=== PATIENT | female | born 2000 | race Caucasian/White ===

== ENCOUNTER 2019-09-16 20:44 | Emergency (ER) | payer OTHER, SELFPAY ==
[2019-09-16 20:51] VITALS: BP 140/75; PULSE 80; RESP 12; TEMP 36.3; O2SAT 98; BMI 34.7
--- NOTE | 2019-09-16 20:54 | ED_ITS ---
HPI - General Adult General Chief complaint: Abdominal Pain Stated complaint: pain around umbilical area Time Seen by Provider: 09/16/19 20:47 Source: patient Mode of arrival: Ambulatory Limitations: no limitations History of Present Illness HPI narrative: 18-year-old female here for evaluation of periumbilical and right lower quadrant abdominal pain. She states she has felt bloated for the past several days/week however pain started around her umbilicus yesterday and is not located in the right lower quadrant. No urinary symptoms. No vaginal bleeding. No change in bowel habits. Some nausea but no vomiting. Appetite has been coming and going. No fevers. No prior abdominal surgeries. Related Data Allergies Allergy/AdvReac Type Severity Reaction Status Date / Time No Known Drug Allergies Allergy Verified 09/16/19 21:24 Review of Systems Constitutional Constitutional: Denies fatigue and Denies fever(s) Cardiovascular Cardiovascular: Denies chest pain and Denies dyspnea Respiratory Respiratory: Denies dyspnea Gastrointestinal Gastrointestinal: Reports abdominal pain, Denies change in stool character, Reports nausea and Denies vomiting Genitourinary Genitourinary: Denies dysuria and Denies vaginal discharge Musculoskeletal Musculoskeletal: Denies myalgias and Denies arthralgias Integumentary/Breasts Skin/Breast: Denies rash Neurologic Neurologic: Denies behavioral changes Psychiatric Psychiatric: Denies behavioral changes Endocrine Endocrine: Denies fatigue Hematologic/Lymphatic Hematologic/Lymphatic: Denies easy bleeding and Denies easy bruising Patient History Medical History Patient denies medical problems (Acute) Social History lives independently: Yes Smoking Status: Current every day smoker Exam Initial Vital Signs Initial Vital Signs: Vital Signs Temperature 97.4 F L 09/16/19 20:51 Pulse Rate 80 09/16/19 20:51 Respiratory Rate 12 09/16/19 20:51 Blood Pressure 140/75 09/16/19 20:51 Pulse Oximetry 98 09/16/19 20:51 Const General: cooperative and comfortable HENMT Head: normal to inspection and normocephalic Resp Effort & Inspection: normal respiratory effort Auscultation: clear to auscultation bilaterally Cardio Rate: regular rate Rhythm: regular rhythm GI Inspection: non-distended Palpation: soft and tender (Right lower quadrant with some guarding no rebound) Back/Spine/Pelvis Back: No CVA tenderness Skin Lesions: no lesions Rashes: no rashes Neuro General: alert and awake Cognition: normal cognition Speech: speech normal Extrem General: normal to inspection and capillary refill normal Psych Appearance: grossly normal and well kempt Course Orders Ordered: ED Orders 09/16/19 20:54 CT abdomen pelvis w con Stat 09/16/19 21:00 Complete Blood Count MAN DIFF Stat Comprehensive Metabolic Panel Stat Lipase Stat 09/16/19 21:10 Urine Microscopic Stat Discontinued Medications Sodium Chloride (Normal Saline 0.9%) 1,000 mls @ 1,000 mls/hr IV BOLUS ONE Stop: 09/16/19 21:52 Vital Signs Vital signs: Vital Signs - 8 hr 09/16/19 20:51 Temperature 97.4 F L Pulse Rate 80 Respiratory Rate 12 Blood Pressure 140/75 Pulse Oximetry 98 Medical Decision Making Lab Data Lab results reviewed: Yes I reviewed the patient's lab results. Result diagrams: 09/16/19 21:00 09/16/19 21:00 Labs: Lab Results 09/16/19 09/16/19 09/16/19 Range/Units 21:00 21:00 21:00 WBC 9.2 (4.5-11.0) X10^3/uL RBC 4.32 (4.0-5.2) X10^6/uL Hgb 13.7 (12.0-16.0) g/dL Hct 38.7 (36-46) % MCV 89.8 (80-100) fL MCH 31.7 (26-34) PG MCHC 35.3 (30-36) % RDW 13.1 (11.6-14.8) % Plt Count 311 (150-400) X10^3/uL Total Counted 100 Seg Neutrophils % 50.0 (37-67) % Lymphocytes % (Manual) 42.0 (25-45) % Monocytes % (Manual) 5.0 (2-11) % Eosinophils % (Manual) 2.0 (2-4) % Basophils % (Manual) 1.0 (0-1) % Neutrophils # (Manual) 4600 (4854-8521) /uL RBC Morphology Normal morphology Sodium 138 (137-145) mmol/L Potassium 4.0 (3.4-5.1) mmol/L Chloride 107 (98-107) mmol/L Carbon Dioxide 23 (22-32) mmol/L BUN 15 (7-17) mg/dL Creatinine 0.70 (0.52-1.04) mg/dL Estimated GFR > 60.0 (>60) mL/min BUN/Creatinine Ratio 21.4 (6-22) Glucose 107 H (70-100) mg/dL Calcium 9.6 (8.4-10.2) mg/dL Total Bilirubin 0.5 (0.2-1.3) mg/dL AST 24 (14-36) IU/L ALT 22 (<35) IU/L Alkaline Phosphatase 81 (38-126) U/L Total Protein 7.1 (6.3-8.2) g/dL Albumin 4.4 (3.5-5.0) g/dL Globulin 2.7 (1.7-4.1) g/dL Albumin/Globulin Ratio 1.6 (1.0-2.8) Lipase 188 (23-300) U/L Urine RBC (0-5/HPF) Urine WBC (0-5/HPF) Ur Squamous Epith Cells (0-5/HPF) Amorphous Sediment Urine Bacteria (None) Ur Culture Indicated? 09/16/19 Range/Units 21:10 WBC (4.5-11.0) X10^3/uL RBC (4.0-5.2) X10^6/uL Hgb (12.0-16.0) g/dL Hct (36-46) % MCV (80-100) fL MCH (26-34) PG MCHC (30-36) % RDW (11.6-14.8) % Plt Count (150-400) X10^3/uL Total Counted Seg Neutrophils % (37-67) % Lymphocytes % (Manual) (25-45) % Monocytes % (Manual) (2-11) % Eosinophils % (Manual) (2-4) % Basophils % (Manual) (0-1) % Neutrophils # (Manual) (1506-9146) /uL RBC Morphology Sodium (137-145) mmol/L Potassium (3.4-5.1) mmol/L Chloride (98-107) mmol/L Carbon Dioxide (22-32) mmol/L BUN (7-17) mg/dL Creatinine (0.52-1.04) mg/dL Estimated GFR (>60) mL/min BUN/Creatinine Ratio (6-22) Glucose (70-100) mg/dL Calcium (8.4-10.2) mg/dL Total Bilirubin (0.2-1.3) mg/dL AST (14-36) IU/L ALT (<35) IU/L Alkaline Phosphatase (38-126) U/L Total Protein (6.3-8.2) g/dL Albumin (3.5-5.0) g/dL Globulin (1.7-4.1) g/dL Albumin/Globulin Ratio (1.0-2.8) Lipase (23-300) U/L Urine RBC 0-1/hpf (0-5/HPF) Urine WBC 0-1/hpf (0-5/HPF) Ur Squamous Epith Cells 1-5 /hpf (0-5/HPF) Amorphous Sediment 1+ Urine Bacteria Occasional (0-1) (None) Ur Culture Indicated? Cult not indicated Point of Care Testing Test Results Negative Urine Dip Bedside Urine Glucose Negative Bedside Urine Bilirubin - Negative Bedside Urine Ketone - Negative Urine Specific [place] 1.025 Bedside Urine Occult Blood +/- Bedside Urine pH 6.0 Bedside Urine Protein +/- 15 Bedside Urine Urobilinogen - Negative Bedside Urine Nitrite - Negative Bedside Urine Leukocytes - Negative Esterase Point of care testing: Point of Care Testing Test Results Negative Urine Dip Bedside Urine Glucose Negative Bedside Urine Bilirubin - Negative Bedside Urine Ketone - Negative Urine Specific [place] 1.025 Bedside Urine Occult Blood +/- Bedside Urine pH 6.0 Bedside Urine Protein +/- 15 Bedside Urine Urobilinogen - Negative Bedside Urine Nitrite - Negative Bedside Urine Leukocytes - Negative Esterase Imaging Data CT scan - abdomen/pelvis: Radiologist's Impression: [address] [address] [address] Scan Report Signed Patient: Delaney Friend#: [id number] : 2000Acct:[id number] Age/Sex: 18 FDate of Service: 09/16/19 Loc: ED Accession Number: [id number] Procedure: CT abdomen pelvis w con Ordering Provider: Rob Rivera D.O. PROCEDURE: CT ABDOMEN PELVIS W CON INDICATIONS: RLQ pain eval for appy TECHNIQUE: After the administration of intravenous contrast, 5 mm thick sections acquired from the diaphragm to the symphysis. 5 mm coronal and sagittal reformats were acquired. For radiation dose reduction, the following was used: automated exposure control, adjustment of mA and/or kV according to patient size. COMPARISON: None. FINDINGS: Image quality: Excellent. ABDOMEN: Lung bases: Lung bases are clear. Heart size is normal. Solid organs: Liver is normal in size and enhancement. Gallbladder is contracted. Biliary system is non dilated. Pancreas enhances normally. Spleen is normal in size and enhancement. No adrenal nodules. Kidneys demonstrate normal size and enhancement, without hydronephrosis. Peritoneum and bowel: Normal appendix is Bowel loops demonstrate normal wall thickness and caliber. A few colonic diverticula are present. No CT findings to suggest acute diverticulitis. No free fluid or air. Nodes and vessels: No retroperitoneal or mesenteric adenopathy by size criteria. Aorta and inferior vena cava are normal in size. Miscellaneous: No ventral hernias. PELVIS: Genitourinary: Bladder wall thickness is normal. There is a 1.4 cm enhancing nodule in the anterior uterus, compatible with a fibroid. Ovaries are unremarkable. No free pelvic fluid. Miscellaneous: No inguinal hernias or adenopathy. Bones: No suspicious bony lesions. No vertebral body compression fractures. IMPRESSION: 1. Normal appendix. 2. Equivocal bladder wall thickening which may be secondary to inadequate d istention. 3. Mild diverticulosis. No diverticulitis. 4. A 1.4 cm enhancing nodule in the anterior uterus, compatible with a uterine fibroid. Dictated by: Tomas Nelson M.D. on 09/16/2019 at 22:23 Approved by: Tomas Nelson M.D. on 09/16/2019 at 22:30 MDM Narrative Medical decision making narrative: Labs unremarkable, urine unremarkable, CT scan shows no signs of an acute surgical issue. Skin shows no signs of a rash. No indication for antibiotics. No indication for surgical consultation. I did discuss this with the patient. We did discuss the lack of a definitive diagnosis. We did discuss return precautions and follow-up instructions. We will hold on further workup for now. Patient expressed understanding and agreement with plan. Discharge Plan Departure Patient Disposition: Home Clinical Impression: Abdominal pain Qualifiers: Abdominal location: right lower quadrant Qualified Code(s): R10.31 - Right lower quadrant pain Instructions: DI for Abdominal Pain-Adult Activity Restrictions/Additional Instructions: You have no restrictions on your activities. No restrictions on your diet. Contact your primary provider for a follow-up. Return to the emergency department for any new or worsening symptoms
[2019-09-16 21:24] LABS: Hematocrit 38.7 % (36-46); Hemoglobin 13.7 g/dL (12.0-16.0); Mean Corpuscular HGB Conc 35.3 % (30-36); Mean Corpuscular Hemoglobin 31.7 PG (26-34); Mean Corpuscular Volume 89.8 fL (80-100); Platelet Count 311 X10^3/uL (150-400); Red Blood Cell Count 4.32 X10^6/uL (4.0-5.2); Red Cell Distribution Width 13.1 % (11.6-14.8); White Blood Cell Count 9.2 X10^3/uL (4.5-11.0)
[2019-09-16 21:28] LABS: Lipase 188 U/L (23-300)
[2019-09-16 21:30] LABS: Alanine Aminotransferase 22 IU/L (<35); Albumin 4.4 g/dL (3.5-5.0); Albumin Globulin Ratio 1.6 (1.0-2.8); Alkaline Phosphatase 81 U/L (38-126); Aspartate Aminotransferase 24 IU/L (14-36); BUN Creatinine Ratio 21.4 (6-22); Bilirubin Total 0.5 mg/dL (0.2-1.3); Blood Urea Nitrogen 15 mg/dL (7-17); Calcium 9.6 mg/dL (8.4-10.2); Carbon Dioxide 23 mmol/L (22-32); Chloride 107 mmol/L (98-107); Estimated Glomerular Filt Rate > 60.0 mL/min (>60); Globulin 2.7 g/dL (1.7-4.1); Glucose 107 mg/dL (70-100); HEMOLYSIS < 15 (0-50); Sodium 138 mmol/L (137-145); Total Protein 7.1 g/dL (6.3-8.2)
[2019-09-16] MEDS: SODIUM CHLORIDE 0.9% 1,000 ML 1000 ML IV (21:30)
[2019-09-16 21:33] LABS: Neutrophils Absolute Manual 4600 /uL (3000-5900); RBC Morphology Normal Morphology; Total Cells Counted 100
[2019-09-16 21:47] LABS: Amorphous Sediment Urine 1+; Bacteria Urine Occasional (0-1); Culture Indicated Urine Cult Not Indicated; RBC Urine 0-1/HPF (0-5/HPF); Squamous Epithelial Cell Urine 1-5 /HPF (0-5/HPF); WBC Urine 0-1/HPF (0-5/HPF)
[2019-09-16 22:00] VITALS: BP 140/89; PULSE 77; RESP 12; O2SAT 100
== END 2019-09-16 22:40 | disposition home or self-care (01) ==
PROVIDERS: Emergency Provider Emergency Medicine
DX: R10.31 Right lower quadrant pain (principal); R11.0 Nausea
CPT/HCPCS: 74177; 80053; 81003; 81015; 81025; 83690; 85025; 96360; 99284; Q9967

== ENCOUNTER 2019-12-12 13:13 | Emergency (ER) | payer OTHER, SELFPAY ==
[2019-12-12 13:15] VITALS: BP 121/79; PULSE 57; RESP 18; TEMP 36.4; O2SAT 98
--- NOTE | 2019-12-12 13:19 | ED_ITS ---
HPI - Abdominal Pain General Chief Complaint: Abdominal Pain Stated Complaint: belly button Time Seen by Provider: 12/12/19 13:18 Source: patient Mode of arrival: Ambulatory Limitations: no limitations History of Present Illness HPI narrative: This is a 19-year-old female comes to the emergency department complaint of 3-4 days of drainage from her umbilicus. Patient states she noticed a little bit of yellow crusty drainage. Show in clean it but it will reoccur. She started out initially with pain and then noted the drainage. She has not had fevers. She has had some redness inside the belly button itself but none on the outer abdomen. She has not had any nausea vomiting, no issues with bowel movements or urination. No back or flank pain. She has not had similar symptoms in the past. She denies any other medical issues. Related Data Previous Rx's Medication Instructions Recorded amoxicillin-pot clavulanate 1 tab PO Q12H #14 tab 12/12/19 [Augmentin] Allergies Allergy/AdvReac Type Severity Reaction Status Date / Time No Known Drug Allergies Allergy Verified 09/16/19 21:24 Review of Systems Review of Systems ROS Unobtainable: All systems reviewed & are unremarkable except as noted in HPI and below Patient History Medical History Patient denies medical problems (Acute) Social History lives independently: Yes Smoking Status: Current every day smoker Smoking Status: Current every day smoker Substance Use Type: does not use Exam Narrative Exam Narrative: GENERAL: Alert and oriented x three, well-nourished female in mild distress HEENT: Head normocephalic, atraumatic, EOMI, pupils reactive, face symmetric, moist mucous membranes NECK: Supple, full range of motion CARDIOVASCULAR: Regular rate and rhythm without murmurs, rubs or gallops. RESPIRATORY: Breath sounds equal bilaterally, no wheezes rales or rhonchi. ABDOMEN: Soft, nontender. Normoactive bowel sounds all 4 quadrants. No guarding or rebound, rigidity, no mass. Patient has some mild yellow crusting at the opening of the umbilicus. Am not able to express additional fluid but she does have some erythema within the umbilicus which is inverted. Patient does have some mild tenderness with palpation at the umbilicus but none in the abdomen. Culture was obtained and sent to the lab. : No CVA tenderness EXTREMITIES: Normal range of motion, no clubbing or edema. Neurovascularly intact NEUROLOGICAL: Cranial nerves II through XII grossly intact. Moving all extremities SKIN: Warm, dry, no petechiae, no rashes or lesions. Initial Vital Signs Initial Vital Signs: Vital Signs Temperature 97.5 F L 12/12/19 13:15 Pulse Rate 57 L 12/12/19 13:15 Respiratory Rate 18 12/12/19 13:15 Blood Pressure 121/79 12/12/19 13:15 Pulse Oximetry 98 12/12/19 13:15 Course Orders Ordered: ED Orders 12/12/19 13:42 US abdomen limited Stat Wound Culture and Gram Stain Stat Discontinued Medications Ibuprofen (Advil) 800 mg PO NOW ONE Stop: 12/12/19 14:25 Last Admin: 12/12/19 14:35 Dose: 800 mg Documented by: MARIA ALEJANDRA Vital Signs Vital signs: Vital Signs - 8 hr 12/12/19 13:15 12/12/19 15:27 Temperature 97.5 F L Pulse Rate 57 L 80 Respiratory Rate 18 16 Blood Pressure 121/79 Blood Pressure [Right Arm] 111/70 Pulse Oximetry 98 MDM - Abdominal Pain Imaging Data US - abdomen: Radiologist's Impression: [address] [address] Ultrasound Report Signed Patient: Delaney Friend#: [id number] : 2000Acct:[id number] Age/Sex: 19 / FDate of Service: 12/12/19 Loc: ED Accession Number: [id number] Procedure: US abdomen limited Ordering Provider: Charleen Raygoza D.O. PROCEDURE: US ABDOMEN LIMITED INDICATIONS: DRAINAGE FROM UMBILICUS, MILD CRUSTY YELLOW TECHNIQUE: Real-time focused scanning was performed of the abdomen, with image documentation. COMPARISON: [facility], CT, CT ABDOMEN PELVIS W CON, 09/16/2019, 21:38. FINDINGS: Targeted sonographic imaging was performed within the periumbilical region. No cystic or solid abnormalities are identified. No loculated or drainable fluid collections are present. No enlarged lymph nodes are identified. No definite periumbilical hernias are appreciated. IMPRESSION: No abscess or loculated fluid collection is present within the periumbilical region. Dictated by: Rubio Chambers M.D. on 12/12/2019 at 14:09 Approved by: Rubio Chambers M.D. on 12/12/2019 at 14:10 [facility] Narrative Medical decision making narrative: Patient likely has a localized infection her umbilicus but ultrasound was obtained to evaluate for any deeper fluid collections or other structural changes. Ultrasound does not show any acute findings. Patient does have gram positive cocci and variable rods on Gram stain but no wbc's are noted. Patient started on oral antibiotics with for wound care. Patient was encouraged to follow up if she is having very mild symptoms but any worsening symptoms to return to the ED. Discharge Plan Departure Patient Disposition: Home Clinical Impression: Pedroel cellulitis Discharge Date/Time: 12/12/19 15:28 Instructions: DI for Cellulitis -- Adult Activity Restrictions/Additional Instructions: You appear to have an infection of your umbilicius. If you do not have resolution of your symptoms in the next 1-2 weeks either follow up with general surgery or with your primary care physician for recheck. Take antibiotics until gone., start antibiotics today. You may take tylenol and/or ibuprofen as needed for pain. Wound Care: Keep wound(s) clean and dry. Wash twice daily with soap and water only. Do not use over the counter products (alcohol or peroxide)on the wounds unless instructed by a physician, you may put a small amount of topical triple antibiotic ointment twice daily into the umbilicus. If wound condition worsens (increased/expanding redness, developing fluid blisters, or worsening pain), either contact your doctor for an urgent re- assessment , or return to the Emergency Department. Return to the Emergency Department for any new or worsening symptoms. Return if fever greater than 100.4 Fahrenheit, increased swelling, increasing pain or worsening symptoms such as increased discharge or spreading redness, new abdominal or back pain, persistent vomiting, black or bloody stools or other new or concerning symptoms. Prescriptions: New amoxicillin-pot clavulanate [Augmentin] 875-125 mg tablet 1 tab PO Q12H Qty: 14 RF: 0 Referrals: Sana Agudelo ARNP [Primary Care Provider] - Stand Alone Forms: Work Release Note
--- NOTE | 2019-12-12 13:42 | DI.US.S_ITS ---
PROCEDURE: US ABDOMEN LIMITED INDICATIONS: DRAINAGE FROM UMBILICUS, MILD CRUSTY YELLOW TECHNIQUE: Real-time focused scanning was performed of the abdomen, with image documentation. COMPARISON: [facility], CT, CT ABDOMEN PELVIS W CON, 09/16/2019, 21:38. FINDINGS: Targeted sonographic imaging was performed within the periumbilical region. No cystic or solid abnormalities are identified. No loculated or drainable fluid collections are present. No enlarged lymph nodes are identified. No definite periumbilical hernias are appreciated. IMPRESSION: No abscess or loculated fluid collection is present within the periumbilical region. Dictated by: Rubio Chambers M.D. on 12/12/2019 at 14:09 Approved by: Rubio Chambers M.D. on 12/12/2019 at 14:10
[2019-12-12] MEDS: IBUPROFEN 400 MG TABLET 800 MG PO (14:35)
[2019-12-12 15:24] VITALS: BP 111/70; PULSE 80; RESP 18
[2019-12-12 15:27] VITALS: BP 111/70; PULSE 80; RESP 16
== END 2019-12-12 15:28 | disposition home or self-care (01) ==
PROVIDERS: Emergency Provider Emergency Medicine; PCP Nurse Practitioner Family
DX: L03.316 Cellulitis of umbilicus (principal)
CPT/HCPCS: 76705; 87070; 87077; 87186; 87205; 99283

== ENCOUNTER 2019-12-15 15:27 | Emergency (ER) | payer OTHER, SELFPAY ==
[2019-12-15 15:36] VITALS: BP 119/65; PULSE 66; RESP 16; TEMP 36; O2SAT 100
--- NOTE | 2019-12-15 15:36 | ED.GENADULT ---
HPI - General Adult General Chief complaint: Abdominal Pain Stated complaint: infected belly button Time Seen by Provider: 12/15/19 15:35 History of Present Illness HPI narrative: 19-year-old woman who was seen three days ago with complaints of umbilical drainage. Diagnosed with cellulitis, started on Augmentin and culture shows sphingomaonas, sensitive to almost everything. She states that she took her dressing off today and noticed some discharge with some blood on the dressing. Also some redness around the umbilicus (in the exact shape of the dressing) and her primary care physician suggested she follow-up at the emergency department. She complains that she has been lightheaded, dizzy, decreased appetite but still able to eat and drink if she ?forces herself?. Normal bowel bladder, she states that she has felt warm but has not actually measured a temperature, no cough, no myalgias. Related Data Previous Rx's Medication Instructions Recorded amoxicillin-pot clavulanate 1 tab PO Q12H #14 tab 12/12/19 [Augmentin] sulfamethoxazole-trimethoprim 1 tab PO BID #10 tab 12/15/19 [Bactrim DS] Allergies Allergy/AdvReac Type Severity Reaction Status Date / Time No Known Drug Allergies Allergy Verified 09/16/19 21:24 Review of Systems Review of Systems Narrative: All systems reviewed and are unremarkable except as noted in HPI and below Patient History Medical History Patient denies medical problems (Acute) Social History lives independently: Yes Smoking Status: Current every day smoker Smoking Status: Current every day smoker Substance Use Type: does not use Exam Narrative Exam Narrative: General: Healthy appearing, in no acute distress. Able to give a complete and coherent history. Well-nourished well-developed HEENT: Moist mucous membranes, normal sclera with reactive pupils, Neck: , supple Respiratory: Lungs are clear to auscultation, no wheezing no rales no rhonchi. Full and symmetrical air movement Cardiac: Regular rate and rhythm no murmurs no bruits Abdomen: Soft , good bowel tones, no flank pain. There is an erythematous square adrienne around the umbilicus consistent with the mild allergic reaction to the dressing that had been in place. The umbilicus itself is currently clean, dry, no discharge at all, no redness and no induration. She is quite tender to palpation around the umbilicus Skin: Warm and dry, no rashes Neurologic: Grossly neurologically intact with no obvious asymmetries or abnormalities Extremities: No trauma, well perfused Psych: Cooperative, appropriate insight and affect Bedside ultrasound: There is no deeper abscess, fluid collection or unusual bowel attachment that would suggest any type of fistula around the umbilicus Initial Vital Signs Initial Vital Signs: Vital Signs Temperature 96.8 F L 12/15/19 15:36 Pulse Rate 66 12/15/19 15:36 Respiratory Rate 16 12/15/19 15:36 Blood Pressure 119/65 12/15/19 15:36 Pulse Oximetry 100 12/15/19 15:36 Course Orders Ordered: ED Orders 12/15/19 16:00 Complete Blood Count AUTO DIFF Stat Comprehensive Metabolic Panel Stat Discontinued Medications Ibuprofen (Advil) 400 mg PO NOW ONE Stop: 12/15/19 15:58 Last Admin: 12/15/19 16:08 Dose: 400 mg Documented by: RUI Oxycodone/Acetaminophen (Percocet 5/325) 1 tab PO NOW ONE Stop: 12/15/19 15:58 Last Admin: 12/15/19 16:08 Dose: 1 tab Documented by: RUI Vital Signs Vital signs: Vital Signs - 8 hr 12/15/19 15:36 Temperature 96.8 F L Pulse Rate 66 Respiratory Rate 16 Blood Pressure 119/65 Pulse Oximetry 100 Medical Decision Making Medical Records Medical records reviewed: Yes I reviewed the patient's medical records. Lab Data Lab results reviewed: Yes I reviewed the patient's lab results. Result diagrams: 12/15/19 16:00 12/15/19 16:00 Labs: Lab Results 12/15/19 12/15/19 Range/Units 16:00 16:00 WBC 8.6 (4.5-11.0) X10^3/uL RBC 4.42 (4.0-5.2) X10^6/uL Hgb 14.2 (12.0-16.0) g/dL Hct 40.3 (36-46) % MCV 91.2 (80-100) fL MCH 32.2 (26-34) PG MCHC 35.3 (30-36) % RDW 13.0 (11.6-14.8) % Plt Count 287 (150-400) X10^3/uL Neut % (Auto) 57.0 (50-75) % Lymph % (Auto) 35.2 (25-40) % [place] % (Auto) 5.2 (3-14) % Eos % (Auto) 1.8 L (2-4) % Baso % (Auto) 0.8 (0-2) % Neut # (Auto) 4900 (7676-7629) /uL Lymph # (Auto) 3000 (4694-1778) /uL [place] # (Auto) 400 (0-900) /uL Eos # (Auto) 200 (0-450) /uL Baso # (Auto) 100 (0-100) /uL Sodium 139 (137-145) mmol/L Potassium 4.0 (3.4-5.1) mmol/L Chloride 106 (98-107) mmol/L Carbon Dioxide 26 (22-32) mmol/L BUN 17 (7-17) mg/dL Creatinine 0.71 (0.52-1.04) mg/dL Estimated GFR > 60.0 (>60) mL/min BUN/Creatinine Ratio 23.9 H (6-22) Glucose 90 (70-100) mg/dL Calcium 10.0 (8.4-10.2) mg/dL Total Bilirubin 0.6 (0.2-1.3) mg/dL AST 23 (14-36) IU/L ALT 20 (<35) IU/L Alkaline Phosphatase 76 (38-126) U/L Total Protein 7.6 (6.3-8.2) g/dL Albumin 4.6 (3.5-5.0) g/dL Globulin 3.0 (1.7-4.1) g/dL Albumin/Globulin Ratio 1.5 (1.0-2.8) Gram Stain Final 12/12/19-1433 White blood cells No WBC seen Gram Positive Cocci 4+ Gram Variable Rods 2+ Aerobic Culture for wounds Final 12/15/19-08 Skin Avni Light growth - Mixed skin avni Organism 1 Sphingomonas paucimobilis Growth HEAVY 1. Sphingomonas paucimobilis M.I.C. RX --------- --- * Amikacin S * Aztreonam R * Cefepime S * Ceftriaxone S * Ciprofloxacin S * Gentamicin S * Imipenem S * Levofloxacin S * Meropenem S * Tobramycin I * Trimethoprim/Sulfamethoxazole S * Piperacillin/Tazobactam S Anaerobic Culture Final 12/12/19-1433 [facility] Narrative Medical decision making narrative: Mild umbilical cellulitis improving with increased pain. No evidence of deeper abscess fluid collection or drainage this point. I am wondering if the pain is related to the superficial reaction to the bandage that she had on. Will expand antibiotic coverage to make sure fully covers the pathogen identified on culture initially. She is safe for home discharge Discharge Plan Departure Patient Disposition: Home Clinical Impression: Navel cellulitis Instructions: DI for Cellulitis -- Adult Activity Restrictions/Additional Instructions: Thank you for coming in today. Your infection around your belly button seems to be healing nicely. There is no evidence of a deeper abscess or worsening infection. I am going to add a 2nd antibiotic called Bactrim and would like you to complete 5 additional days in addition to completing the prescription for the amoxicillin clavulanate that your given 3 days ago. This prescription has been electronically sent to the pharmacy at the [facility]. Using 400 mg of ibuprofen (2 [id number] pills) and 1 Tylenol every 6 hours can be very helpful in controlling pain. It is okay to leave your belly button uncovered. You have some skin irritation from the dressing that you had placed previously. If you feel that you are getting worse please feel free to return to the emergency department and I am happy to re-evaluate Prescriptions: New sulfamethoxazole-trimethoprim [Bactrim DS] 800-160 mg tablet 1 tab PO BID Qty: 10 RF: 0 No Action amoxicillin-pot clavulanate [Augmentin] 875-125 mg tablet 1 tab PO Q12H Qty: 14 RF: 0 Referrals: Sana Agudelo ARNP [Primary Care Provider] -
[2019-12-15 16:06] LABS: Add Manual Diff / Slide Review NO; Basophils Absolute Auto 100 /uL (0-100); Basophils Percent Auto 0.8 % (0-2); Eosinophils Absolute Auto 200 /uL (0-450); Eosinophils Percent Auto 1.8 % (2-4); Hematocrit 40.3 % (36-46); Hemoglobin 14.2 g/dL (12.0-16.0); Lymphocytes Absolute Auto 3000 /uL (1100-4500); Lymphocytes Percent Auto 35.2 % (25-40); Mean Corpuscular HGB Conc 35.3 % (30-36); Mean Corpuscular Hemoglobin 32.2 PG (26-34); Mean Corpuscular Volume 91.2 fL (80-100); Monocytes Absolute Auto 400 /uL (0-900); Monocytes Percent Auto 5.2 % (3-14); Neutrophils Absolute Auto 4900 /uL (1500-7000); Platelet Count 287 X10^3/uL (150-400); Red Blood Cell Count 4.42 X10^6/uL (4.0-5.2); White Blood Cell Count 8.6 X10^3/uL (4.5-11.0)
[2019-12-15] MEDS: OXYCODONE/ACETAMINOPHEN 5/325 TABLET 1 TAB PO (16:08)
[2019-12-15] MEDS: IBUPROFEN 400 MG TABLET PO (16:08)
[2019-12-15 16:16] LABS: Alanine Aminotransferase 20 IU/L (<35); Albumin 4.6 g/dL (3.5-5.0); Albumin Globulin Ratio 1.5 (1.0-2.8); Alkaline Phosphatase 76 U/L (38-126); Aspartate Aminotransferase 23 IU/L (14-36); BUN Creatinine Ratio 23.9 (6-22); Bilirubin Total 0.6 mg/dL (0.2-1.3); Blood Urea Nitrogen 17 mg/dL (7-17); Carbon Dioxide 26 mmol/L (22-32); Chloride 106 mmol/L (98-107); Estimated Glomerular Filt Rate > 60.0 mL/min (>60); Glucose 90 mg/dL (70-100); HEMOLYSIS < 15 (0-50); Sodium 139 mmol/L (137-145); Total Protein 7.6 g/dL (6.3-8.2)
[2019-12-15 16:49] VITALS: BP 116/73; PULSE 72; RESP 12; TEMP 36.3; O2SAT 100
== END 2019-12-15 16:49 | disposition home or self-care (01) ==
PROVIDERS: Emergency Provider Emergency Medicine; PCP Nurse Practitioner Family
DX: L03.316 Cellulitis of umbilicus (principal)
CPT/HCPCS: 36415; 80053; 85025; 99283

== ENCOUNTER 2020-03-18 23:03 | Emergency (ER) | payer OTHER, SELFPAY ==
[2020-03-18 23:11] VITALS: BP 113/70; PULSE 60; RESP 15; TEMP 36.9; O2SAT 100; BMI 36.6
--- NOTE | 2020-03-18 23:25 | ED.GENADULT ---
HPI - General Adult General Chief complaint: Abdominal Pain Stated complaint: abd pain one week Time Seen by Provider: 03/18/20 23:15 Source: patient Mode of arrival: Ambulatory Limitations: no limitations History of Present Illness HPI narrative: 19-year-old female with bilateral however right greater than left lower abdominal pain for the past week. She states she has had a couple episodes of vomiting over the past week but none within the past 24 hours. Has also had diarrhea during this time. No fevers. Has tried ibuprofen at home without any improvement. No vaginal bleeding. No vaginal discharge. She states she is approximately custodial through her menstrual cycle at the time of this evaluation. No prior abdominal surgeries. Patient is concerned about appendicitis. Related Data Previous Rx's Medication Instructions Recorded amoxicillin-pot clavulanate 1 tab PO Q12H #14 tab 12/12/19 [Augmentin] sulfamethoxazole-trimethoprim 1 tab PO BID #10 tab 12/15/19 [Bactrim DS] Allergies Allergy/AdvReac Type Severity Reaction Status Date / Time No Known Drug Allergies Allergy Verified 09/16/19 21:24 Review of Systems Constitutional Constitutional: Denies fever(s) and Denies headache(s) ENT Ears, Nose, Mouth, and Throat: Denies headache(s) Cardiovascular Cardiovascular: Denies chest pain and Denies dyspnea Respiratory Respiratory: Denies dyspnea Gastrointestinal Gastrointestinal: Reports abdominal pain, Reports diarrhea and Reports vomiting Genitourinary Genitourinary: Denies dysuria Genitourinary: Denies dysuria and Denies vaginal discharge Musculoskeletal Musculoskeletal: Denies arthralgias and Denies myalgias Integumentary/Breasts Skin/Breast: Denies lesions and Denies rash Neurologic Neurologic: Denies behavioral changes and Denies headache(s) Psychiatric Psychiatric: Denies behavioral changes and Denies depression Hematologic/Lymphatic Hematologic/Lymphatic: Denies easy bleeding and Denies easy bruising Allergic/Immunologic Allergic/Immunologic: Denies urticaria Patient History Medical History Patient denies medical problems (Acute) Social History lives independently: Yes Smoking Status: Current every day smoker Smoking Status: Current every day smoker Substance Use Type: does not use Exam Initial Vital Signs Initial Vital Signs: Vital Signs Temperature 98.5 F 03/18/20 23:11 Pulse Rate 60 03/18/20 23:11 Respiratory Rate 15 03/18/20 23:11 Blood Pressure 113/70 03/18/20 23:11 Pulse Oximetry 100 03/18/20 23:11 Const General: cooperative and comfortable Limitations: mental status not altered HENMT Head: normal to inspection and atraumatic Resp Effort & Inspection: normal respiratory effort Auscultation: clear to auscultation bilaterally Cardio Rate: regular rate Rhythm: regular rhythm GI Inspection: non-distended Palpation: soft, No firm and tender (Bilateral lower abdomen) Back/Spine/Pelvis Back: No CVA tenderness Skin Lesions: no lesions Rashes: no rashes Neuro General: patient alert, patient awake and patient oriented x3 Cognition: normal cognition Speech: speech normal Extrem General: normal to inspection and capillary refill normal Psych Appearance: grossly normal and well kempt Course Orders Ordered: ED Orders 03/18/20 23:26 CT abdomen pelvis w con Stat 03/18/20 23:30 Urine Microscopic Stat 03/18/20 23:40 Complete Blood Count AUTO DIFF Stat Comprehensive Metabolic Panel Stat Lipase Stat Discontinued Medications Sodium Chloride (Normal Saline 0.9%) 1,000 mls @ 1,000 mls/hr IV BOLUS ONE Stop: 03/19/20 00:24 Last Infusion: 03/19/20 00:52 Dose: 1,000 mls/hr Documented by: Admin: 03/19/20 00:03 Dose: 1,000 mls/hr Documented by: CTRSARITHA Ketorolac Tromethamine (Toradol) 30 mg IV NOW ONE Stop: 03/18/20 23:46 Last Admin: 03/19/20 00:03 Dose: 30 mg Documented by: GUERRERO Ondansetron HCl (Zofran Odt Prepack) 1 bottle MISC SEEINSTR ONE Stop: 03/19/20 00:45 Last Admin: 03/19/20 00:52 Dose: 1 bottle Documented by: GUERRERO Vital Signs Vital signs: Vital Signs - 8 hr 03/18/20 23:11 03/19/20 00:10 03/19/20 01:00 Temperature 98.5 F Pulse Rate 60 59 L 61 Respiratory Rate 15 16 16 Blood Pressure 113/70 106/57 L 97/60 Pulse Oximetry 100 100 100 Medical Decision Making Lab Data Lab results reviewed: Yes I reviewed the patient's lab results. Result diagrams: 03/18/20 23:40 03/18/20 23:40 Labs: Lab Results 03/18/20 03/18/20 03/18/20 Range/Units 23:30 23:40 23:40 WBC 9.5 (4.5-11.0) X10^3/uL RBC 4.42 (4.0-5.2) X10^6/uL Hgb 13.9 (12.0-16.0) g/dL Hct 40.1 (36-46) % MCV 90.6 (80-100) fL MCH 31.3 (26-34) PG MCHC 34.6 (30-36) % RDW 13.0 (11.6-14.8) % Plt Count 328 (150-400) X10^3/uL Neut % (Auto) 43.0 L (50-75) % Lymph % (Auto) 47.9 H (25-40) % [place] % (Auto) 6.2 (3-14) % Eos % (Auto) 1.8 L (2-4) % Baso % (Auto) 1.1 (0-2) % Neut # (Auto) 4100 (8689-1629) /uL Lymph # (Auto) 4600 H (1323-3395) /uL [place] # (Auto) 600 (0-900) /uL Eos # (Auto) 200 (0-450) /uL Baso # (Auto) 100 (0-100) /uL Sodium 138 (137-145) mmol/L Potassium 4.0 (3.4-5.1) mmol/L Chloride 105 (98-107) mmol/L Carbon Dioxide 26 (22-32) mmol/L BUN 14 (7-17) mg/dL Creatinine 0.71 (0.52-1.04) mg/dL Estimated GFR > 60.0 (>60) mL/min BUN/Creatinine Ratio 19.7 (6-22) Glucose 94 (70-100) mg/dL Calcium 10.1 (8.4-10.2) mg/dL Total Bilirubin 0.8 (0.2-1.3) mg/dL AST 28 (14-36) IU/L ALT 25 (<35) IU/L Alkaline Phosphatase 71 (38-126) U/L Total Protein 7.1 (6.3-8.2) g/dL Albumin 4.5 (3.5-5.0) g/dL Globulin 2.6 (1.7-4.1) g/dL Albumin/Globulin Ratio 1.7 (1.0-2.8) Lipase 180 (23-300) U/L Urine RBC 0-1/hpf (0-5/HPF) Urine WBC 0-1/hpf (0-5/HPF) Ur Squamous Epith Cells 5-10 /hpf H (0-5/HPF) Amorphous Sediment 1+ Urine Bacteria Moderate (10-30) H (None) Urine Mucus 1+ H (Negative) Ur Culture Indicated? Cult not indicated Point of Care Testing Test Results Negative Urine Dip Bedside Urine Glucose Negative Bedside Urine Bilirubin - Negative Bedside Urine Ketone - Negative Urine Specific [place] 1.015 Bedside Urine Occult Blood - Negative Bedside Urine pH 7.0 Bedside Urine Protein +/- 15 Bedside Urine Urobilinogen +/- 1mg Bedside Urine Nitrite - Negative Bedside Urine Leukocytes +/- 15 Esterase Point of care testing: Point of Care Testing Test Results Negative Urine Dip Bedside Urine Glucose Negative Bedside Urine Bilirubin - Negative Bedside Urine Ketone - Negative Urine Specific [place] 1.015 Bedside Urine Occult Blood - Negative Bedside Urine pH 7.0 Bedside Urine Protein +/- 15 Bedside Urine Urobilinogen +/- 1mg Bedside Urine Nitrite - Negative Bedside Urine Leukocytes +/- [address] scan - abdomen/pelvis: Radiologist's Impression: 1.3 cm focal myometrial hemorrhage versus fibroid No other significant abnormalities MDM Narrative Medical decision making narrative: Had a discussion with the patient regarding her symptoms. Did inform her that based on her presentation I felt that appendicitis was unlikely however after the discussion of the risks and benefits of a CT scan the patient did opt for the scan. Patient's labs were unremarkable. CT scan did not show any signs of appendicitis. I feel that the hemorrhage/fibroid seen in the uterus is unlikely the cause of her symptoms today given her presentation. No emergent surgical condition found. No indication for antibiotics. No indication for admission the hospital. I did discuss all this with the patient. We discussed return precautions and follow-up instructions. She expressed understanding and agreement. Discharge Plan Departure Patient Disposition: Home Clinical Impression: Nausea and vomiting Qualifiers: Vomiting type: unspecified Vomiting Intractability: non-intractable Qualified Code(s): R11.2 - Nausea with vomiting, unspecified Abdominal pain Qualifiers: Abdominal location: unspecified location Qualified Code(s): R10.9 - Unspecified abdominal pain Diarrhea Qualifiers: Diarrhea type: unspecified type Qualified Code(s): R19.7 - Diarrhea, unspecified Discharge Date/Time: 03/19/20 01:00 Instructions: DI for Abdominal Pain-Adult, Nausea and Vomiting-Adult Activity Restrictions/Additional Instructions: Use the nausea medicine as needed. Eat a bland diet over the next couple days. Be sure to increase your fluid intake. Return to the emergency department for any new or worsening symptoms Prescriptions: No Action amoxicillin-pot clavulanate [Augmentin] 875-125 mg tablet 1 tab PO Q12H Qty: 14 RF: 0 sulfamethoxazole-trimethoprim [Bactrim DS] 800-160 mg tablet 1 tab PO BID Qty: 10 RF: 0 Referrals: Sana Agudelo ARNP [Primary Care Provider] - Stand Alone Forms: Work Release Note
--- NOTE | 2020-03-18 23:26 | DI.CT.S_ITS ---
PROCEDURE: CT ABDOMEN PELVIS W CON INDICATIONS: Right lower quadrant abdominal pain eval for appy TECHNIQUE: After the administration of oral and intravenous contrast, 5 mm thick sections acquired from the diaphragms to the symphysis. 5 mm thick coronal and sagittal reformats were performed. For radiation dose reduction, the following was used: automated exposure control, adjustment of mA and/or kV according to patient size. COMPARISON: [facility], CT, CT ABDOMEN PELVIS W CON, 09/16/2019, 21:38. FINDINGS: Image quality: Diagnostic ABDOMEN: Lung bases: Lung bases are clear. Heart size is normal. Solid organs: Liver is normal in size and enhancement. Gallbladder is decompressed and not adequately evaluated. Biliary system is non-dilated. Pancreas enhances normally. Spleen is normal in size and enhancement. No adrenal nodules. Kidneys are normal in size and enhancement, without hydronephrosis. Peritoneum and bowel: The stomach and duodenum are unremarkable. The small bowel loops are nondilated. The appendix (image 70, series 2) is normal in size without surrounding inflammation. However, there is wall prominence evident involving the proximal colon with areas of minimal adjacent edema. Small ileo colic lymph nodes are evident. The remainder of the colon is otherwise unremarkable with a moderate amount of residual stool present. No free fluid, loculated fluid collection, or free air is evident. Nodes and vessels: No retroperitoneal or mesenteric adenopathy. Aorta and inferior vena cava are normal in caliber. Bones: No acute fracture or dislocation is evident. No suspicious osseous lesions are evident PELVIS: Genitourinary: Wall prominence of the urinary bladder probably is exaggerated by incomplete distention. No bladder calculi are evident. The uterus and ovaries are not well evaluated on CT, but do not appear to be significantly enlarged. There is a rounded area of enhancement along the posterior wall of the fundal portion of the uterus, compatible with a uterine fibroid, measuring up to approximately 1.9 centimetres. This was present on the previous examination and has a similar appearance. Miscellaneous: No inguinal hernias or adenopathy. No free fluid or loculated fluid collection is appreciated. There is no free air. Bones: No suspicious bony lesions. No vertebral body compression fractures. IMPRESSION: 1. Normal appendix. 2. Mild nonspecific wall thickening of the ascending colon may be within normal limits and exaggerated by incomplete distention. However, clinical correlation to exclude the possibility of colitis is recommended. 3. No bowel obstruction or abscess. There may be mild constipation. 4. Uterine fibroid. Note: The preliminary report provided by [facility] is concordant with the final report. Dictated by: Rubio Chambers M.D. on 03/19/2020 at 6:31 Approved by: Rubio Chambers M.D. on 03/19/2020 at 6:38
[2020-03-18 23:55] LABS: Add Manual Diff / Slide Review NO; Basophils Absolute Auto 100 /uL (0-100); Basophils Percent Auto 1.1 % (0-2); Eosinophils Absolute Auto 200 /uL (0-450); Eosinophils Percent Auto 1.8 % (2-4); Hematocrit 40.1 % (36-46); Hemoglobin 13.9 g/dL (12.0-16.0); Lymphocytes Absolute Auto 4600 /uL (1100-4500); Lymphocytes Percent Auto 47.9 % (25-40); Mean Corpuscular HGB Conc 34.6 % (30-36); Mean Corpuscular Hemoglobin 31.3 PG (26-34); Mean Corpuscular Volume 90.6 fL (80-100); Monocytes Absolute Auto 600 /uL (0-900); Monocytes Percent Auto 6.2 % (3-14); Neutrophils Absolute Auto 4100 /uL (1500-7000); Platelet Count 328 X10^3/uL (150-400); Red Blood Cell Count 4.42 X10^6/uL (4.0-5.2); White Blood Cell Count 9.5 X10^3/uL (4.5-11.0)
[2020-03-19] LABS: Amorphous Sediment Urine 1+; Bacteria Urine Moderate (10-30); Mucus Urine 1+ (Negative); RBC Urine 0-1/HPF (0-5/HPF); Squamous Epithelial Cell Urine 5-10 /HPF (0-5/HPF); WBC Urine 0-1/HPF (0-5/HPF)
[2020-03-19 00:01] LABS: Alanine Aminotransferase 25 IU/L (<35); Albumin 4.5 g/dL (3.5-5.0); Albumin Globulin Ratio 1.7 (1.0-2.8); Alkaline Phosphatase 71 U/L (38-126); Aspartate Aminotransferase 28 IU/L (14-36); BUN Creatinine Ratio 19.7 (6-22); Bilirubin Total 0.8 mg/dL (0.2-1.3); Blood Urea Nitrogen 14 mg/dL (7-17); Calcium 10.1 mg/dL (8.4-10.2); Carbon Dioxide 26 mmol/L (22-32); Chloride 105 mmol/L (98-107); Estimated Glomerular Filt Rate > 60.0 mL/min (>60); Globulin 2.6 g/dL (1.7-4.1); Glucose 94 mg/dL (70-100); HEMOLYSIS < 15 (0-50); Lipase 180 U/L (23-300); Sodium 138 mmol/L (137-145); Total Protein 7.1 g/dL (6.3-8.2)
[2020-03-19 00:01] LABS: Culture Indicated Urine Cult Not Indicated
[2020-03-19] MEDS: KETOROLAC 60 MG/2 ML VIAL 30 MG IV (00:03)
[2020-03-19] MEDS: SODIUM CHLORIDE 0.9% 1,000 ML 1000 ML IV (00:03)
[2020-03-19 00:10] VITALS: BP 106/57; PULSE 59; RESP 16; O2SAT 100
[2020-03-19] MEDS: ONDANSETRON 4 MG ODT PREPACK 1 BOTTLE MISC (00:52)
[2020-03-19 01:00] VITALS: BP 97/60; PULSE 61; RESP 16; O2SAT 100
== END 2020-03-19 01:00 | disposition home or self-care (01) ==
PROVIDERS: Emergency Provider Emergency Medicine; PCP Nurse Practitioner Family
DX: R10.32 Left lower quadrant pain (principal); R19.7 Diarrhea, unspecified; R11.2 Nausea with vomiting, unspecified
CPT/HCPCS: 36415; 74177; 80053; 81003; 81015; 81025; 83690; 85025; 96361; 96374; 99284; 99285; J1885; Q9967

== ENCOUNTER 2020-03-29 20:21 | Emergency (ER) | payer OTHER, SELFPAY ==
[2020-03-29 20:28] VITALS: BP 127/69; PULSE 91; RESP 16; TEMP 36.6; O2SAT 97; BMI 36.6
--- NOTE | 2020-03-29 20:34 | ED.SKABFB ---
HPI - Skin/Abscess/Foreign Bdy General Chief complaint: Skin/Abscess/Foreign Body Stated complaint: BITE OF SOMETHING RIGHT SIDE OF RIGHT HIP Time Seen by Provider: 03/29/20 20:23 Source: patient Mode of arrival: Ambulatory Limitations: no limitations History of Present Illness HPI narrative: 19-year-old female, fully immunized, daily smoker presents by herself with a chief complaint of a small insect bite on her right hip. She states that she had been camping with her boyfriend and though she does not remember anything crawling on her biting her she is convinced something did. After camping trip she had a small, dime-sized red spot on her hip that then developed a small scab. It is now tender and has some minimal surrounding redness. She denies any drainage of fluid. MD complaint: abscess/boil Onset (ago): day(s) Tetanus up to date: yes Location: RLE (medial hip) Severity: mild Quality: constant Relieving factors: rest Exacerbating factors: palpation and movement Context: recent camping Associated symptoms: denies other symptoms Treatments prior to arrival: bandages Related Data Previous Rx's Medication Instructions Recorded amoxicillin-pot clavulanate 1 tab PO Q12H #14 tab 12/12/19 [Augmentin] sulfamethoxazole-trimethoprim 1 tab PO BID #10 tab 12/15/19 [Bactrim DS] mupirocin 1 applictn TOP TID 7 Days #15 gram 03/29/20 Allergies Allergy/AdvReac Type Severity Reaction Status Date / Time No Known Drug Allergies Allergy Verified 09/16/19 21:24 Review of Systems Constitutional Constitutional: Denies chills, Denies fatigue, Denies fever(s), Denies frequent falls, Denies lethargy and Denies weakness Eyes Eyes: Denies change in vision, Denies eye discharge, Denies irritation and Denies loss of vision ENT Ears, Nose, Mouth, and Throat: Denies change in voice, Denies dizziness, Denies neck pain, Denies sore throat and Denies throat swelling Cardiovascular Cardiovascular: Denies chest pain, Denies irregular heart rhythm, Denies lightheadedness, Denies palpitations, Denies dyspnea, Denies dyspnea on exertion and Denies orthopnea Respiratory Respiratory: Denies cough, Denies dyspnea, Denies dyspnea on exertion and Denies wheezing Gastrointestinal Gastrointestinal: Denies abdominal pain, Denies change in bowel habits, Denies diarrhea, Denies nausea and Denies vomiting Musculoskeletal Musculoskeletal: Denies neck pain and Denies numbness Integumentary/Breasts Skin/Breast: Denies pruritus, Reports lesions, Denies erythema, Denies rash and Denies wounds Neurologic Neurologic: Denies behavioral changes, Denies confusion, Denies dizziness, Denies frequent falls, Denies loss of vision, Denies numbness and Denies weakness Psychiatric Psychiatric: Denies anxiety, Denies behavioral changes, Denies confusion, Denies depression, Denies homicidal ideation and Denies suicidal ideation Endocrine Endocrine: Denies fatigue, Denies flushing and Denies palpitations Hematologic/Lymphatic Hematologic/Lymphatic: Denies easy bruising Allergic/Immunologic Allergic/Immunologic: Denies urticaria, Denies throat swelling and Denies wheezing Patient History Medical History Patient denies medical problems (Acute) Social History lives independently: Yes Smoking Status: Current every day smoker Smoking Status: Current every day smoker tobacco type: cigarettes Substance Use Type: does not use Exam Narrative Exam Narrative: GEN: AOx3 and in mild distress EYES: Pupils are equal, round, and reactive to light and accommodation. Extraoccular muscles are intact bilaterally. There is no subconjunctival hemorrhage or exudate. CHEST: Lungs are clear to auscultation bilaterally and free of wheezes, rales, or rhonchi. Heart rate is regular rhythm, there are no murmurs, clicks, rubs, or gallops. There is no chest wall tenderness. ABD: Abdomen is soft and nontender. There is no guarding or rebound. Bowel sounds are normal in all 4 quadrants. There is no mass or organomegaly. EXT: Full painless ROM of all extremities with no loss of sensation or strength. SKIN: 1cm lesion on medial right hip just inferior to ASIS. No induration or fluctuance. No drainage. Small and mildly ulcerated with minimal surrounding erythema. Initial Vital Signs Initial Vital Signs: Vital Signs Temperature 97.9 F 03/29/20 20:28 Pulse Rate 91 H 03/29/20 20:28 Respiratory Rate 16 03/29/20 20:28 Blood Pressure 127/69 03/29/20 20:28 Pulse Oximetry 97 03/29/20 20:28 Course Vital Signs Vital signs: Vital Signs - 8 hr 03/29/20 20:28 Temperature 97.9 F Pulse Rate 91 H Respiratory Rate 16 Blood Pressure 127/69 Pulse Oximetry 97 MDM - Skin/Abscess/Foreign Bdy MDM Narrative Medical decision making narrative: Insect / spider bite with minimal infection considered most likely, but also considered small abscess vs. other. Discharge Plan Departure Patient Disposition: Home Clinical Impression: Infected insect bite Qualifiers: Encounter type: initial encounter Qualified Code(s): W57.XXXA - Bitten or stung by nonvenomous insect and other nonvenomous arthropods, initial encounter Discharge Date/Time: 03/29/20 20:34 Instructions: DI for Insect Bites and Stings, DI for Skin Abscess Activity Restrictions/Additional Instructions: *You have been diagnosed with [insect bite with possible early infection or early abscess] *What to do: *Take medications as directed *Follow up with your primary care provider in 2-3 days, call for an appointment. Let them know you were seen in the Emergency Department and that we ask that you be seen in follow up *Return to ER if you should have any new, worsening or concerning symptoms Prescriptions: New mupirocin 2 % ointment 1 applictn TOP TID 7 Days Qty: 15 RF: 0 No Action amoxicillin-pot clavulanate [Augmentin] 875-125 mg tablet 1 tab PO Q12H Qty: 14 RF: 0 sulfamethoxazole-trimethoprim [Bactrim DS] 800-160 mg tablet 1 tab PO BID Qty: 10 RF: 0 Referrals: [facility] [Outside] Sana Agudelo ARNP [Primary Care Provider] -
== END 2020-03-29 20:34 | disposition home or self-care (01) ==
LOC: ED 20:36
PROVIDERS: Emergency Provider Emergency Medicine; PCP Nurse Practitioner Family
DX: S70.261A Insect bite (nonvenomous), right hip, initial encounter (principal); W57.XXXA Bitten or stung by nonvenomous insect and other nonvenomous arthropods, initial encounter
CPT/HCPCS: 99281

== ENCOUNTER 2020-07-11 12:48 | Emergency (ER) | payer OTHER, SELFPAY ==
[2020-07-11 12:50] VITALS: BP 119/65; PULSE 79; RESP 14; TEMP 37.1; O2SAT 99; BMI 35.7
[2020-07-11 13:40] LABS: Amorphous Sediment Urine 1+; Bacteria Urine Moderate (10-30); Culture Indicated Urine Specimen Cultured; RBC Urine 1-5/HPF (0-5/HPF); Squamous Epithelial Cell Urine 1-5 /HPF (0-5/HPF); WBC Urine 5-10/HPF (0-5/HPF)
--- NOTE | 2020-07-11 13:43 | PC.NURSE ---
pt states she has had an infection under umbilicus before.
--- NOTE | 2020-07-11 14:19 | DI.US.S_ITS ---
PROCEDURE: US ABDOMEN LIMITED INDICATIONS: UMBILICAL DRAINAGE. PERIUMBILICAL PAIN. HISTORY OF INFECTION TECHNIQUE: Real-time focused scanning was performed of the abdomen, with image documentation. COMPARISON: [facility], CT, CT ABDOMEN PELVIS W CON, 03/18/2020, 23:25. [facility], US, US ABDOMEN LIMITED, 12/12/2019, 14:01. FINDINGS: No findings of a periumbilical hernia can be seen, even with scanning with Valsalva maneuver. Negative for abscess. IMPRESSION: Negative study, without abscess or periumbilical hernia. Dictated by: Pj Chinchilla M.D. on 07/11/2020 at 13:53 Approved by: Pj Chinchilla M.D. on 07/11/2020 at 13:54
[2020-07-11 15:23] LABS: Add Manual Diff / Slide Review NO; Basophils Absolute Auto 100 /uL (0-100); Basophils Percent Auto 0.9 % (0-2); Eosinophils Absolute Auto 200 /uL (0-450); Eosinophils Percent Auto 2.2 % (2-4); Hematocrit 40.4 % (36-46); Hemoglobin 14.1 g/dL (12.0-16.0); Lymphocytes Absolute Auto 3300 /uL (1100-4500); Lymphocytes Percent Auto 32.4 % (25-40); Mean Corpuscular HGB Conc 34.9 % (30-36); Mean Corpuscular Hemoglobin 31.9 PG (26-34); Mean Corpuscular Volume 91.4 fL (80-100); Monocytes Absolute Auto 400 /uL (0-900); Monocytes Percent Auto 3.9 % (3-14); Neutrophils Absolute Auto 6200 /uL (1500-7000); Neutrophils Percent Auto 60.6 % (50-75); Platelet Count 322 X10^3/uL (150-400); Red Blood Cell Count 4.42 X10^6/uL (4.0-5.2); Red Cell Distribution Width 13.3 % (11.6-14.8); White Blood Cell Count 10.3 X10^3/uL (4.5-11.0)
[2020-07-11] MEDS: HYDROCODONE/ACET 5/325 TABLET 1 TAB PO (15:23)
[2020-07-11] MEDS: KETOROLAC 60 MG/2 ML VIAL 30 MG IM (15:23)
[2020-07-11] MEDS: ONDANSETRON 4 MG ODT SL (15:24)
--- NOTE | 2020-07-11 15:25 | ED_ITS ---
HPI - Abdominal Pain <JORJE LanderosP - Last Filed: 07/11/20 16:03> General Chief Complaint: Abdominal Pain Stated Complaint: BELLY BUTTON INFECTION NAUSEA MIGRANE LT NIPPLE PA Time Seen by Provider: 07/11/20 13:49 Source: patient Mode of arrival: Ambulatory Limitations: no limitations History of Present Illness HPI narrative: This is a 19-year-old female, smoker, who has previous medical history significant for tonsillitis and infection in umbilicus several months ago presents to ED with friend with chief complain of belly button infection stating umbilical discomfort and yellowish clear discharge for last 2 days. Patient reports she had similar symptoms 2 months ago and had ultrasound test done showing abscess in her abdomen region. She contacted her primary care physician's office and it was recommended to going to ED for another evaluation and ultrasound test. Patient denies fever, chills, vomiting but reports nausea for last 2 days. Patient denies redness or swelling around the umbilicus. She reports after shower she cleans her belly button orally which was instructed by her physician. Patient denies urinary symptoms. LMP 2 days ago with spotting. Related Data Previous Rx's Medication Instructions Recorded cephalexin [Keflex] 500 mg PO Q6H 7 Days #28 cap 07/11/20 Allergies Allergy/AdvReac Type Severity Reaction Status Date / Time No Known Drug Allergies Allergy Verified 07/11/20 13:16 Review of Systems <Bijan Treadwell [facility] - Last Filed: 07/11/20 16:03> Review of Systems Narrative: General: Denies fever, chills, fatigue, malaise, sweats. HEENT: Denies sinus pain, ear pain, sore throat, difficulty swallowing, dizziness. Respiratory: Denies dyspnea, cough, wheezing, hemoptysis, sputum. Cardiovascular: Denies chest pain, palpitations, orthopnea, edema. Gastrointestinal: See HPI : Denies dysuria, frequency, incontinence, hematuria, urinary retention. Musculoskeletal: Denies weakness, joint pain or bony pain. Skin: See HPI Neurologic: Denies weakness, headache, numbness, change in speech, confusion, seizures, incoordination. Psychiatric: No concerning psychosocial issues. 12-point review of systems is negative except for those stated above. Patient History <JORJE LanderosP - Last Filed: 07/11/20 16:03> Medical History Patient denies medical problems (Acute) Surgical History History of tonsillectomy (Acute) Social History lives independently: Yes Smoking Status: Current every day smoker Smoking Status: Current every day smoker tobacco type: cigarettes alcohol intake frequency: holidays/special occasions only Substance Use Type: does not use Exam <JOSE LUIS Landeros - Last Filed: 07/11/20 16:03> Narrative Exam Narrative: GEN: Alert, oriented x 3, well appearing and nourished, and in no acute distress. Head: Normal cephalic, atraumatic. No scalp or temporal tenderness, palpable mass or rash. EYES: Pupils are equal, round, and reactive to light and accommodation. Extraocular muscles are intact bilaterally. There is no subconjunctival hemorrhage, exudate and sclera non-icteric. ENT: Hearing grossly intact. Nose without bleeding, purulent discharge or deviation. Mucous membrane moist, no mucosal lesion. Throat without erythema, tonsillar hypertrophy or exudate. Uvula in midline, airway patent. Neck: Trachea in midline. No JVD, non-tender without lymphadenopathy. No masses or thyroid megaly. Supple, non-tender and no meningeal signs. CARDIAC: Normal regular rate and rhythm without murmurs, gallops, or rubs. No chest wall tenderness. No peripheral edema, cyanosis or pallor. Capillary refill is less than 2 seconds. RESPIRATORY: Lungs are clear to auscultate bilaterally. No cough, wheezes, rales, or rhonchi. No stridor, respiratory distress, increase work of breathing, or accessary muscle used. ABD: Abdomen soft and non-distended. Tender to palpate in bilateral low quadrant. No drainage, redness, warmth in periumbilical region. No guarding or rebound tenderness to palpate. Bowel sounds are normal in all 4 quadrants. There is no palpable masses or organomegaly. EXT: Full painless ROM of all extremities with no loss of sensation, strength, effusion or edema. SKIN: Warm, dry, normal color for patient. No erythema, lesions or rash over visible areas. BACK: Nontender without deformity or crepitance. No flank tenderness. NEUROLOGICAL: Alert and oriented to place, time and person. Sensation and motor function intact bilaterally. No facial droops, dysphasia. PSYCHIATRIC: Good judgement and reason, without hallucinations, abnormal affect or abnormal behaviors during the examination. Patient is not suicidal. Initial Vital Signs Initial Vital Signs: Vital Signs Temperature 98.7 F 07/11/20 12:50 Pulse Rate 79 07/11/20 12:50 Respiratory Rate 14 07/11/20 12:50 Blood Pressure 119/65 07/11/20 12:50 Pulse Oximetry 99 07/11/20 12:50 <Dayan Swan MD - Last Filed: 07/11/20 19:02> Initial Vital Signs Initial Vital Signs: Vital Signs Temperature 98.7 F 07/11/20 12:50 Pulse Rate 79 07/11/20 12:50 Respiratory Rate 14 07/11/20 12:50 Blood Pressure 119/65 07/11/20 12:50 Pulse Oximetry 99 07/11/20 12:50 Scores <JOSE LUIS Landeros - Last Filed: 07/11/20 16:03> GCS Low coma scale eye opening: Spontaneous [place] coma scale verbal response: Orientated [place] coma scale motor response: Obey commands [place] coma scale total score: 15 qSOFA Altered Mental Status (GCS <15): No Respiratory rate greater than/equal to 22: No Systolic blood pressure less than or equal to 100: No qSOFA Total: 0 0-1 Not High Risk 1-3 High risk Course <JOSE LUIS Landeros - Last Filed: 07/11/20 16:03> Orders Ordered: ED Orders 07/11/20 13:04 Urine Culture Stat Urine Microscopic Stat 07/11/20 14:19 US abdomen limited Stat 07/11/20 15:15 Complete Blood Count AUTO DIFF Stat Comprehensive Metabolic Panel Stat Lactate (Lactic Acid) Stat Discontinued Medications Hydrocodone Bitart/Acetaminophen ([place] 5/325) 1 tab PO NOW ONE Stop: 07/11/20 15:10 Last Admin: 07/11/20 15:23 Dose: 1 tab Documented by: KBROTEM Ketorolac Tromethamine (Toradol) 30 mg IM NOW ONE Stop: 07/11/20 15:10 Last Admin: 07/11/20 15:23 Dose: 30 mg Documented by: JOSE Ondansetron HCl (Zofran Odt) 4 mg SL NOW ONE Stop: 07/11/20 15:10 Last Admin: 07/11/20 15:24 Dose: 4 mg Documented by: JOSE Reevaluation(s) Reevaluation #1: Physical exam is unremarkable without obvious signs of infection in periumbilical reason. Patient is requesting imaging test. She had received to 2 abdominal/pelvis CT and 1 ultrasound test this year. Which showe d uterine fibroid, diverticulosis but no abscess or fistula in her abdomen. No peritoneal signs per physical exam. Discussed risk and benefit for another CT test and unremarkable findings from previous imaging tests but patient request imaging test again and to forego with this. Time: 14:25 Vital Signs Vital signs: Vital Signs - 8 hr 07/11/20 12:50 Temperature 98.7 F Pulse Rate 79 Respiratory Rate 14 Blood Pressure 119/65 Pulse Oximetry 99 <Dayan Swan MD - Last Filed: 07/11/20 19:02> Orders Ordered: ED Orders 07/11/20 13:04 Urine Culture Stat Urine Microscopic Stat 07/11/20 14:19 US abdomen limited Stat 07/11/20 15:15 Complete Blood Count AUTO DIFF Stat Comprehensive Metabolic Panel Stat Lactate (Lactic Acid) Stat Discontinued Medications Hydrocodone Bitart/Acetaminophen ([place] 5/325) 1 tab PO NOW ONE Stop: 07/11/20 15:10 Last Admin: 07/11/20 15:23 Dose: 1 tab Documented by: JOSE Ketorolac Tromethamine (Toradol) 30 mg IM NOW ONE Stop: 07/11/20 15:10 Last Admin: 07/11/20 15:23 Dose: 30 mg Documented by: OJSE Ondansetron HCl (Zofran Odt) 4 mg SL NOW ONE Stop: 07/11/20 15:10 Last Admin: 07/11/20 15:24 Dose: 4 mg Documented by: JOSE Vital Signs Vital signs: Vital Signs - 8 hr 07/11/20 12:50 Temperature 98.7 F Pulse Rate 79 Respiratory Rate 14 Blood Pressure 119/65 Pulse Oximetry 99 MDM - Abdominal Pain <Bijan Alcantara-Oras, ENGINEERING SPECIALIST TECHNICIAN - Last Filed: 07/11/20 16:03> Differential Diagnosis Differential diagnosis: Likely abdominal pain and other (UTI, uterine fibroids, appendicitis, abdominal abscess/fistula) Medical Records Attestation: I reviewed the patient's medical records. Lab Data Attestation: I reviewed the patient's lab results. Result diagrams: 07/11/20 15:15 07/11/20 15:15 Labs: Lab Results 07/11/20 07/11/20 07/11/20 Range/Units 13:04 15:15 15:15 WBC 10.3 (4.5-11.0) X10^3/uL RBC 4.42 (4.0-5.2) X10^6/uL Hgb 14.1 (12.0-16.0) g/dL Hct 40.4 (36-46) % MCV 91.4 (80-100) fL MCH 31.9 (26-34) PG MCHC 34.9 (30-36) % RDW 13.3 (11.6-14.8) % Plt Count 322 (150-400) X10^3/uL Neut % (Auto) 60.6 (50-75) % Lymph % (Auto) 32.4 (25-40) % [place] % (Auto) 3.9 (3-14) % Eos % (Auto) 2.2 (2-4) % Baso % (Auto) 0.9 (0-2) % Neut # (Auto) 6200 (9257-4281) /uL Lymph # (Auto) 3300 (4309-3109) /uL [place] # (Auto) 400 (0-900) /uL Eos # (Auto) 200 (0-450) /uL Baso # (Auto) 100 (0-100) /uL Sodium 138 (137-145) mmol/L Potassium 4.0 (3.4-5.1) mmol/L Chloride 107 (98-107) mmol/L Carbon Dioxide 26 (22-32) mmol/L BUN 15 (7-17) mg/dL Creatinine 0.59 (0.52-1.04) mg/dL Estimated GFR > 60.0 (>60) mL/min BUN/Creatinine Ratio 25.4 H (6-22) Glucose 96 (70-100) mg/dL Lactate (0.7-2.1) mmol/L Calcium 9.3 (8.4-10.2) mg/dL Total Bilirubin 0.5 (0.2-1.3) mg/dL AST 35 (14-36) IU/L ALT 35 H (<35) IU/L Alkaline Phosphatase 90 (38-126) U/L Total Protein 7.2 (6.3-8.2) g/dL Albumin 4.4 (3.5-5.0) g/dL Globulin 2.8 (1.7-4.1) g/dL Albumin/Globulin Ratio 1.6 (1.0-2.8) Urine RBC 1-5/hpf (0-5/HPF) Urine WBC 5-10/hpf H (0-5/HPF) Ur Squamous Epith Cells 1-5 /hpf (0-5/HPF) Amorphous Sediment 1+ Urine Bacteria Moderate (10-30) H (None) Ur Culture Indicated? Specimen cultured 07/11/20 Range/Units 15:15 WBC (4.5-11.0) X10^3/uL RBC (4.0-5.2) X10^6/uL Hgb (12.0-16.0) g/dL Hct (36-46) % MCV (80-100) fL MCH (26-34) PG MCHC (30-36) % RDW (11.6-14.8) % Plt Count (150-400) X10^3/uL Neut % (Auto) (50-75) % Lymph % (Auto) (25-40) % [place] % (Auto) (3-14) % Eos % (Auto) (2-4) % Baso % (Auto) (0-2) % Neut # (Auto) (3511-7229) /uL Lymph # (Auto) (7506-1797) /uL [place] # (Auto) (0-900) /uL Eos # (Auto) (0-450) /uL Baso # (Auto) (0-100) /uL Sodium (137-145) mmol/L Potassium (3.4-5.1) mmol/L Chloride (98-107) mmol/L Carbon Dioxide (22-32) mmol/L BUN (7-17) mg/dL Creatinine (0.52-1.04) mg/dL Estimated GFR (>60) mL/min BUN/Creatinine Ratio (6-22) Glucose (70-100) mg/dL Lactate 0.7 (0.7-2.1) mmol/L Calcium (8.4-10.2) mg/dL Total Bilirubin (0.2-1.3) mg/dL AST (14-36) IU/L ALT (<35) IU/L Alkaline Phosphatase (38-126) U/L Total Protein (6.3-8.2) g/dL Albumin (3.5-5.0) g/dL Globulin (1.7-4.1) g/dL Albumin/Globulin Ratio (1.0-2.8) Urine RBC (0-5/HPF) Urine WBC (0-5/HPF) Ur Squamous Epith Cells (0-5/HPF) Amorphous Sediment Urine Bacteria (None) Ur Culture Indicated? Point of care testing: Point of Care Testing Test Results Negative Urine Dip Bedside Urine Glucose Negative Bedside Urine Bilirubin - Negative Bedside Urine Ketone - Negative Urine Specific [place] 1.015 Bedside Urine Occult Blood ++ Bedside Urine pH 6.5 Bedside Urine Protein - Negative Bedside Urine Urobilinogen - Negative Bedside Urine Nitrite - Negative Bedside Urine Leukocytes + 70 Esterase ECG Data Interpretation: [place] [address] Ultrasound Report Signed Patient: Delaney Friend#: [id number] : 2000Acct:[id number] Age/Sex: 19 / FDate of Service: 07/11/20 Loc: ED Accession Number: [id number] Procedure: US abdomen limited Ordering Provider: Bijan Treadwell PROCEDURE: US ABDOMEN LIMITED INDICATIONS: UMBILICAL DRAINAGE. PERIUMBILICAL PAIN. HISTORY OF INFECTION TECHNIQUE: Real-time focused scanning was performed of the abdomen, with image documentation. COMPARISON: [facility], CT, CT ABDOMEN PELVIS W CON, 03/18/2020, 23:25. [facility], US, US ABDOMEN LIMITED, 12/12/2019, 14:01. FINDINGS: No findings of a periumbilical hernia can be seen, even with scanning with Valsalva maneuver. Negative for abscess. IMPRESSION: Negative study, without abscess or periumbilical hernia. Dictated by: Pj Chinchilla M.D. on 07/11/2020 at 13:53 Approved by: Pj Chinchilla M.D. on 07/11/2020 at 13:54 [facility] Narrative Medical decision making narrative: This is a 19-year-old female who presents to ED with concerns for periumbilical abscess reporting discomfort around periumbilical region with nausea for last 2 days with history of infection in periumbilical region. Physical exam is unremarkable and not consistent with appendicitis. CBC, CMP, lactate all unremarkable and not in sepsis. Patient is afebrile with within normal range of vital signs. Ultrasound test does not show periumbilical hernia or abscess. Patient was medicated with Toradol IM injection, [place] for pain management. Findings were shared with patient and starting on antibiotic medication Keflex 500 mg q.i.d. dose for 7 days for indications for UTI with + leuko site esterase, positive wbc 5-10 and moderate bacteria in urine micro test. Urine culture is pending. Previous ultrasound test and abdominal/pelvis CT results reviewed with patient informing patient has uterine fibroids, diverticulosis without diverticulitis. No indications for abdominal abscess according to previous imaging tests. Return precautions such as surgical abdominal symptoms reviewed with patient and she verbalized und erstanding and agreement with the treatment plan. Work off note provided for a day. <Dayan Swan MD - Last Filed: 07/11/20 19:02> Lab Data Labs: Lab Results 07/11/20 07/11/20 07/11/20 Range/Units 13:04 15:15 15:15 WBC 10.3 (4.5-11.0) X10^3/uL RBC 4.42 (4.0-5.2) X10^6/uL Hgb 14.1 (12.0-16.0) g/dL Hct 40.4 (36-46) % MCV 91.4 (80-100) fL MCH 31.9 (26-34) PG MCHC 34.9 (30-36) % RDW 13.3 (11.6-14.8) % Plt Count 322 (150-400) X10^3/uL Neut % (Auto) 60.6 (50-75) % Lymph % (Auto) 32.4 (25-40) % [place] % (Auto) 3.9 (3-14) % Eos % (Auto) 2.2 (2-4) % Baso % (Auto) 0.9 (0-2) % Neut # (Auto) 6200 (1990-0396) /uL Lymph # (Auto) 3300 (0080-1635) /uL [place] # (Auto) 400 (0-900) /uL Eos # (Auto) 200 (0-450) /uL Baso # (Auto) 100 (0-100) /uL Sodium 138 (137-145) mmol/L Potassium 4.0 (3.4-5.1) mmol/L Chloride 107 (98-107) mmol/L Carbon Dioxide 26 (22-32) mmol/L BUN 15 (7-17) mg/dL Creatinine 0.59 (0.52-1.04) mg/dL Estimated GFR > 60.0 (>60) mL/min BUN/Creatinine Ratio 25.4 H (6-22) Glucose 96 (70-100) mg/dL Lactate (0.7-2.1) mmol/L Calcium 9.3 (8.4-10.2) mg/dL Total Bilirubin 0.5 (0.2-1.3) mg/dL AST 35 (14-36) IU/L ALT 35 H (<35) IU/L Alkaline Phosphatase 90 (38-126) U/L Total Protein 7.2 (6.3-8.2) g/dL Albumin 4.4 (3.5-5.0) g/dL Globulin 2.8 (1.7-4.1) g/dL Albumin/Globulin Ratio 1.6 (1.0-2.8) Urine RBC 1-5/hpf (0-5/HPF) Urine WBC 5-10/hpf H (0-5/HPF) Ur Squamous Epith Cells 1-5 /hpf (0-5/HPF) Amorphous Sediment 1+ Urine Bacteria Moderate (10-30) H (None) Ur Culture Indicated? Specimen cultured 07/11/20 Range/Units 15:15 WBC (4.5-11.0) X10^3/uL RBC (4.0-5.2) X10^6/uL Hgb (12.0-16.0) g/dL Hct (36-46) % MCV (80-100) fL MCH (26-34) PG MCHC (30-36) % RDW (11.6-14.8) % Plt Count (150-400) X10^3/uL Neut % (Auto) (50-75) % Lymph % (Auto) (25-40) % [place] % (Auto) (3-14) % Eos % (Auto) (2-4) % Baso % (Auto) (0-2) % Neut # (Auto) (9699-5315) /uL Lymph # (Auto) (3620-2691) /uL [place] # (Auto) (0-900) /uL Eos # (Auto) (0-450) /uL Baso # (Auto) (0-100) /uL Sodium (137-145) mmol/L Potassium (3.4-5.1) mmol/L Chloride (98-107) mmol/L Carbon Dioxide (22-32) mmol/L BUN (7-17) mg/dL Creatinine (0.52-1.04) mg/dL Estimated GFR (>60) mL/min BUN/Creatinine Ratio (6-22) Glucose (70-100) mg/dL Lactate 0.7 (0.7-2.1) mmol/L Calcium (8.4-10.2) mg/dL Total Bilirubin (0.2-1.3) mg/dL AST (14-36) IU/L ALT (<35) IU/L Alkaline Phosphatase (38-126) U/L Total Protein (6.3-8.2) g/dL Albumin (3.5-5.0) g/dL Globulin (1.7-4.1) g/dL Albumin/Globulin Ratio (1.0-2.8) Urine RBC (0-5/HPF) Urine WBC (0-5/HPF) Ur Squamous Epith Cells (0-5/HPF) Amorphous Sediment Urine Bacteria (None) Ur Culture Indicated? Point of care testing: Point of Care Testing Test Results Negative Urine Dip Bedside Urine Glucose Negative Bedside Urine Bilirubin - Negative Bedside Urine Ketone - Negative Urine Specific [place] 1.015 Bedside Urine Occult Blood ++ Bedside Urine pH 6.5 Bedside Urine Protein - Negative Bedside Urine Urobilinogen - Negative Bedside Urine Nitrite - Negative Bedside Urine Leukocytes + 70 Esterase Discharge Plan Departure Patient Disposition: Home Clinical Impression: UTI (urinary tract infection) Qualifiers: Urinary tract infection type: site unspecified Hematuria presence: with hematuria Qualified Code(s): N39.0 - Urinary tract infection, site not specified Abdominal pain Qualifiers: Abdominal location: lower abdomen, unspecified Qualified Code(s): R10.30 - Lower abdominal pain, unspecified Discharge Date/Time: 07/11/20 16:00 Instructions: DI for Urinary Tract Infection (UTI), DI for Abdominal Pain-Adult Activity Restrictions/Additional Instructions: You have been diagnosed with [UTI. Ultrasound on abdomen does not show hernia or abscess periumbilical region. Urine culture is pending. CBC, chemistry, lactate are unremarkable. Physical exam is assuring. Your receive a phone call from us if you require different antibiotic medication when urine culture results available.]. What to do: *Take your medications as directed. Start antibiotic medication 4 times a day for next 7 days. If you were to have skin infection this medication will help as well. *Follow up with your primary care provider in 2-3 days, call for an appointment. Let them know you were seen in the ED and that we asked you to be seen in follow up. *Return to ED if you have any new, worsening, or concerning symptoms, such as [increasing abdominal pain, right lower quadrant pain, fever, chills, decreased appetite, unable to tolerate fluids, chest pain, breathing difficulty or any acute concerns] Prescriptions: New cephalexin [Keflex] 500 mg capsule 500 mg PO Q6H 7 Days Qty: 28 RF: 0 Referrals: Sana Agudelo ARNP [Primary Care Provider] - Stand Alone Forms: Work Release Note <Dayan Swan MD - Last Filed: 07/11/20 19:02> Cosign ED Attending Cosmaria mature Attestation: I was immediately available in the department for consultation throughout this patient's visit. I agree with documentation as above. Dayan Swan MD
[2020-07-11 15:34] LABS: Alanine Aminotransferase 35 IU/L (<35); Albumin 4.4 g/dL (3.5-5.0); Albumin Globulin Ratio 1.6 (1.0-2.8); Alkaline Phosphatase 90 U/L (38-126); Aspartate Aminotransferase 35 IU/L (14-36); BUN Creatinine Ratio 25.4 (6-22); Bilirubin Total 0.5 mg/dL (0.2-1.3); Blood Urea Nitrogen 15 mg/dL (7-17); Calcium 9.3 mg/dL (8.4-10.2); Carbon Dioxide 26 mmol/L (22-32); Chloride 107 mmol/L (98-107); Estimated Glomerular Filt Rate > 60.0 mL/min (>60); Globulin 2.8 g/dL (1.7-4.1); Glucose 96 mg/dL (70-100); HEMOLYSIS < 15 (0-50); Lactate (Lactic Acid) 0.7 mmol/L (0.7-2.1); Sodium 138 mmol/L (137-145); Total Protein 7.2 g/dL (6.3-8.2)
== END 2020-07-11 16:00 | disposition home or self-care (01) ==
PROVIDERS: Emergency Medicine; Emergency Provider Nurse Practitioner Family; PCP Nurse Practitioner Family
DX: N39.0 Urinary tract infection, site not specified (principal); R10.30 Lower abdominal pain, unspecified; R11.0 Nausea
CPT/HCPCS: 76705; 80053; 81003; 81015; 81025; 83605; 85025; 87077; 87086; 87186; 96372; 99283; 99284; J1885

== ENCOUNTER 2020-10-29 10:52 | Emergency (ER) | payer OTHER, SELFPAY ==
[2020-10-29 11:01] VITALS: BP 127/60; PULSE 63; RESP 16; TEMP 36.8; O2SAT 100; BMI 35.7
--- NOTE | 2020-10-29 11:25 | ED_ITS ---
HPI - Extremity Injury (Upper) <ELZA Mandujano - Last Filed: 10/29/20 12:01> General Chief Complaint: Extremity Injury, Upper Stated Complaint: Lt Hand Pain-carpel tunnel Time Seen by Provider: 10/29/20 11:07 Source: patient and family Mode of arrival: Ambulatory Limitations: no limitations History of Present Illness HPI narrative: The patient is a 19-year-old female current smoker with history of prediabetes and carpal tunnel in her left hand who presents with a chief complaint of carpal tunnel related pain. She states [place], has been on anti- inflammatories. However last night she kept having severe pain in her left wrist which she calls her ?carpal tunnel pain that made it difficult to sleep. It was improved by repositioning, but then would hurt again. She last took naproxen at 3:00 a.m.. She has a primary care provider follow-up scheduled this week. She is wearing a brace. States that her carpal tunnel is related to the fact that she works with her hands a lot at her job. Related Data Previous Rx's Medication Instructions Recorded prednisone 50 mg PO DAILY #4 tab 10/29/20 Allergies Allergy/AdvReac Type Severity Reaction Status Date / Time No Known Drug Allergies Allergy Verified 10/29/20 10:59 Review of Systems <ELZA Mandujano - Last Filed: 10/29/20 12:01> Review of Systems Narrative: GENERAL: Denies chills, fatigue, malaise, fever, sweats. HEENT: Denies sinus pain, ear pain, sore throat, difficulty swallowing, dizziness. RESPIRATORY: Denies dyspnea, cough, wheezing, hemoptysis, sputum. CARDIOVASCULAR: Denies chest pain, palpitations, orthopnea, edema, GASTROINTESTINAL: Denies nausea, vomiting, abdominal pain, diarrhea, constipation, melena. : Denies dysuria, frequency, incontinence, hematuria, urinary retention. MUSCULOSKELETAL: See HPI SKIN: Denies rash, skin lesions, or other NEUROLOGIC: Denies weakness, headache, numbness, change in speech, confusion, seizures, incoordination. PSYCHIATRIC: No concerning psychosocial issues. 12 point review of systems is negative except for those stated above Patient History <ELZA Mandujano - Last Filed: 10/29/20 12:01> Medical History (Updated 10/29/20 @ 11:49 by ELZA Mandujano) Patient denies medical problems Surgical History History of tonsillectomy Social History lives independently: Yes Smoking Status: Current every day smoker Smoking Status: Current every day smoker tobacco type: cigarettes alcohol intake frequency: holidays/special occasions only Substance Use Type: does not use Exam <ELZA Mandujano - Last Filed: 10/29/20 12:01> Narrative Exam Narrative: GENERAL: This is a well-nourished, well-developed patient, in no acute distress. HEAD: Atraumatic. Normocephalic. No temporal or scalp tenderness. EYES: Pupils equal round and reactive. Extraocular motions intact. No scleral icterus. No injection or drainage. ENT: Nose without bleeding, purulent drainage or septal hematoma. Wearing a mask Airway patent. NECK: Trachea midline. No JVD or lymphadenopathy. Supple, nontender, no meningeal signs. CARDIOVASCULAR: Regular rate and rhythm RESPIRATORY: No cough. No increased respiratory effort. No accessory muscle use EXTREMITIES: Left hand positive radial pulse, capillary refill less than 2 seconds all fingers left hand, positive Phalen sign left wrist BACK: Nontender without deformity or crepitance. No flank tenderness. NEURO: AOx3. SKIN: No rash or erythema on visible skin. No rash erythema laceration etcetera noted left wrist and hand. Initial Vital Signs Initial Vital Signs: Vital Signs Temperature 98.2 F 10/29/20 11:01 Pulse Rate 63 10/29/20 11:01 Respiratory Rate 16 10/29/20 11:01 Blood Pressure 127/60 10/29/20 11:01 Pulse Oximetry 100 10/29/20 11:01 <Onesimo Goff MD - Last Filed: 10/29/20 18:39> Initial Vital Signs Initial Vital Signs: Vital Signs Temperature 98.2 F 10/29/20 11:01 Pulse Rate 63 10/29/20 11:01 Respiratory Rate 16 10/29/20 11:01 Blood Pressure 127/60 10/29/20 11:01 Pulse Oximetry 100 10/29/20 11:01 Scores <ELZA Mandujano - Last Filed: 10/29/20 12:01> GCS Low coma scale eye opening: Spontaneous Blandford coma scale verbal response: Orientated Blandford coma scale motor response: Obey commands Blandford coma scale total score: 15 Course <ELZA Mandujano - Last Filed: 10/29/20 12:01> Orders Ordered: Discontinued Medications Prednisone (Prednisone 20 Mg Tablet) 60 mg PO NOW ONE Stop: 10/29/20 11:24 Last Admin: 10/29/20 11:28 Dose: 60 mg Documented by: DAVIDSON Vital Signs Vital signs: Vital Signs - 8 hr 10/29/20 11:01 10/29/20 11:54 Temperature 98.2 F Pulse Rate 63 71 Respiratory Rate 16 16 Blood Pressure 127/60 107/57 L Pulse Oximetry 100 100 <Onesimo Goff MD - Last Filed: 10/29/20 18:39> Orders Ordered: Discontinued Medications Prednisone (Prednisone 20 Mg Tablet) 60 mg PO NOW ONE Stop: 10/29/20 11:24 Last Admin: 10/29/20 11:28 Dose: 60 mg Documented by: DAVIDSON Vital Signs Vital signs: Vital Signs - 8 hr 10/29/20 11:01 10/29/20 11:54 Temperature 98.2 F Pulse Rate 63 71 Respiratory Rate 16 16 Blood Pressure 127/60 107/57 L Pulse Oximetry 100 100 MDM - Extremity Injury (Upper) <ELZA Mandujano - Last Filed: 10/29/20 12:01> MDM Narrative Medical decision making narrative: The patient is a 19-year-old female with history of carpal tunnel who presents the chief complaint of carpal tunnel syndrome pain in her left wrist. She has been using anti-inflammatories, has a positive Phalen test. However she has never been on steroids, so at this point we will do a burst of steroids. Discussed possible side effects including increased hunger, labile affect etcetera encouraged follow-up with primary care provider and coming back to the ER for acute concerns such as decreased circulation to her left hand or fingers. Patient is neurovascular intact throughout her stay in the ER. Patient has been of no questions or concerns upon discharge states understanding of return precautions as well as follow-up care. Discharge Plan Departure Patient Disposition: Home Clinical Impression: Carpal tunnel syndrome, left Instructions: DI for Carpal Tunnel Syndrome, How To Perform RICE (Rest, Ice, Compress, Elevate), How to Perform Stretches for Carpal Tunnel Syndrome Activity Restrictions/Additional Instructions: Thank you for trusting us with your care today. I sent a burst of steroids to [facility] in [place]. Please start these to [facility] as we have given your 1st dose in the emergency department. Please do not combine these with NSAIDs. I suggest taking the steroids in the morning. Please be aware that they can make you labile, hungry etcetera Please follow-up with primary care provider in the next few days. Please come back to the emergency department for any acute concerns such as decreased circulation to your fingers. Prescriptions: New prednisone 50 mg tablet 50 mg PO DAILY Qty: 4 RF: 0 Referrals: Sana Agudelo ARNP [Primary Care Provider] - <Onesimo Goff MD - Last Filed: 10/29/20 18:39> Cosign ED Attending Cosignature Attestation: I was immediately available in the department for consultation. This documentation has been reviewed and I agree with assessment and plan. Supervised by Onesimo Goff MD
[2020-10-29] MEDS: predniSONE 20 MG TABLET 60 MG PO (11:28)
[2020-10-29 11:54] VITALS: BP 107/57; PULSE 71; RESP 16; O2SAT 100
== END 2020-10-29 11:54 | disposition home or self-care (01) ==
PROVIDERS: Emergency Provider Nurse Practitioner Family; PCP Nurse Practitioner Family
DX: G56.02 Carpal tunnel syndrome, left upper limb (principal)
CPT/HCPCS: 99281; 99283

== ENCOUNTER 2021-01-10 20:42 | Emergency (ER) | payer OTHER, SELFPAY ==
[2021-01-10 20:49] VITALS: BP 117/66; PULSE 63; RESP 16; TEMP 37.2; O2SAT 99; BMI 36.2
[2021-01-10 21:28] VITALS: PULSE 58; O2SAT 99
[2021-01-10 21:29] VITALS: BP 112/72; PULSE 65; O2SAT 99
[2021-01-10 21:30] VITALS: BP 117/72; PULSE 64; O2SAT 99
[2021-01-10 21:34] LABS: Bacteria Urine Occasional (0-1); Culture Indicated Urine Cult Not Indicated; RBC Urine 1-5/HPF (0-5/HPF); Squamous Epithelial Cell Urine 1-5 /HPF (0-5/HPF); WBC Urine 1-5/HPF (0-5/HPF)
[2021-01-10 22:11] LABS: Pregnancy Test Urine Positive (Negative)
[2021-01-10 22:55] LABS: Alanine Aminotransferase 19 IU/L (<35); Albumin 4.2 g/dL (3.5-5.0); Albumin Globulin Ratio 1.6 (1.0-2.8); Alkaline Phosphatase 64 U/L (38-126); Aspartate Aminotransferase 22 IU/L (14-36); BUN Creatinine Ratio 31.7 (6-22); Bilirubin Total 0.6 mg/dL (0.2-1.3); Blood Urea Nitrogen 19 mg/dL (7-17); Calcium 9.5 mg/dL (8.4-10.2); Carbon Dioxide 24 mmol/L (22-32); Chloride 104 mmol/L (98-107); Estimated Glomerular Filt Rate > 60.0 mL/min (>60); Globulin 2.6 g/dL (1.7-4.1); Glucose 93 mg/dL (70-100); HEMOLYSIS < 15 (0-50); Lipase 130 U/L (23-300); Potassium 4.3 mmol/L (3.4-5.1); Sodium 136 mmol/L (137-145); Total Protein 6.8 g/dL (6.3-8.2)
[2021-01-10 23:03] LABS: INR 1.1 (0.9-1.3); Prothrombin Time 12.5 SECONDS (10.1-12.7)
--- NOTE | 2021-01-10 23:05 | ED_ITS ---
HPI - Abdominal Pain General Chief Complaint: Abdominal Pain Stated Complaint: lower abd pain, 2 months Time Seen by Provider: 01/10/21 22:50 Source: patient Mode of arrival: Ambulatory History of Present Illness HPI narrative: Patient here with partner. Complains of lower pelvic cramping since yesterday. Had vaginal spotting on Friday. None now. No vaginal discharge. No urinary complaints. Patient thinks she is about 2 months . She is A1. She called for 1st appointment today for OBGYN. Locally. At this facility. No back pain. She called the General number and was referred to an Ob office to set up appointment. She does not recall the name of the office MD complaint: abdominal pain Related Data Previous Rx's Medication Instructions Recorded prednisone 50 mg PO DAILY #4 tab 10/29/20 prenat.vits,stephanie,[id number] 1 tab PO DAILY #30 tab 01/11/21 Allergies Allergy/AdvReac Type Severity Reaction Status Date / Time No Known Drug Allergies Allergy Verified 01/10/21 20:51 Review of Systems Review of Systems Narrative: GENERAL: Denies chills, fatigue, malaise, fever, sweats. HEENT: Denies sinus pain, ear pain, sore throat RESPIRATORY: Denies dyspnea, cough CARDIOVASCULAR: Denies chest pain, palpitations GASTROINTESTINAL: Complaint nausea, vomiting, abdominal pain : Denies dysuria, frequency, hematuria, complains vaginal spotting MUSCULOSKELETAL: denies muscle or bony pain SKIN: Denies rash, skin lesions NEUROLOGIC: Denies weakness, numbness ROS Unobtainable: All systems reviewed & are unremarkable except as noted in HPI and below Patient History Medical History (Updated 01/11/21 @ 00:24 by Onesimo Goff MD) Patient denies medical problems Surgical History History of tonsillectomy Social History lives independently: Yes Smoking Status: Former smoker Smoking Status: Former smoker tobacco type: cigarettes alcohol intake frequency: holidays/special occasions only Substance Use Type: does not use Exam Narrative Exam Narrative: GENERAL: in no distress, not toxic not dyspneic HEAD: Normocephalic. EYES: Pupils equal round No scleral icterus. No injection no discharge ENT: Mucous membranes moist. NECK: Trachea midline. CARDIOVASCULAR: Regular rate and rhythm without murmurs RESPIRATORY: Clear to auscultation. Breath sounds equal bilaterally. No wheezes, rales, or rhonchi. 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 Nurse Shital present. Normal external exam. No blood or bleeding in the vagina. No lesions or discharge. Os is closed. No tissue at the os. No adnexal tenderness. EXTREMITIES: No gross deformities. BACK: No flank tenderness. NEURO: AOx4. SKIN: Warm and dry PSYCH: Not anxious, is cooperative Initial Vital Signs Initial Vital Signs: Vital Signs Temperature 98.9 F 01/10/21 20:49 Pulse Rate 63 01/10/21 20:49 Respiratory Rate 16 01/10/21 20:49 Blood Pressure 117/66 01/10/21 20:49 Pulse Oximetry 99 01/10/21 20:49 Course Course Course Narrative: No new issues during course of stay. No vaginal bleeding, jose n improved with Tylenol Orders Ordered: ED Orders 01/10/21 21:22 Test Urine Stat Urine Microscopic Stat 01/10/21 22:31 ABO RH Type Stat Complete Blood Count AUTO DIFF Stat Comprehensive Metabolic Panel Stat HCG Quantitative /Beta subunit Stat Lipase Stat Partial Thromboplastin Time Stat Prothrombin Time INR Stat 01/10/21 23:24 US OB <= 14 weeks fetus Stat 01/11/21 00:25 Wet Prep Tric BV Nery Stat Discontinued Medications Acetaminophen (Acetaminophen 325 Mg Tablet) 650 mg PO NOW ONE Stop: 01/10/21 23:05 Last Admin: 01/10/21 23:10 Dose: 650 mg Documented by: Reevaluation(s) Reevaluation #1: Patient states feels much better after Tylenol. No pain. Reviewed results with patient and partner. They agree with treatment plan and follow-up. Important to follow up this week to rule out ectopic Time: 01:30 Consultations Consultation #1: Spoke with nurse practitioner Gayla, she will inform office with [facility], with dr gonzalez, office will call patient today for office recheck, aware to rule out ectopic Time: 01:31 Vital Signs Vital signs: Vital Signs - 8 hr 01/10/21 20:49 01/10/21 21:28 01/10/21 21:29 Temperature 98.9 F Pulse Rate 63 58 L 65 Respiratory Rate 16 Blood Pressure 117/66 112/72 Pulse Oximetry 99 99 99 01/10/21 21:30 Temperature Pulse Rate 64 Respiratory Rate Blood Pressure 117/72 Pulse Oximetry 99 MDM - Abdominal Pain Differential Diagnosis Differential diagnosis: Likely abdominal pain and other (Threatened miscarriage) Lab Data Attestation: I reviewed the patient's lab results. Result diagrams: 01/10/21 22:31 01/10/21 22:31 Labs: Lab Results 01/10/21 01/10/21 01/10/21 Range/Units 21:22 21:22 22:31 WBC 9.9 (4.5-11.0) X10^3/uL RBC 4.06 (4.0-5.2) X10^6/uL Hgb 13.0 (12.0-16.0) g/dL Hct 36.8 (36-46) % MCV 90.7 (80-100) fL MCH 32.0 (26-34) PG MCHC 35.3 (30-36) % RDW 13.0 (11.6-14.8) % Plt Count 300 (150-400) X10^3/uL Neut % (Auto) 54.6 (50-75) % Lymph % (Auto) 37.3 (25-40) % [place] % (Auto) 6.0 (3-14) % Eos % (Auto) 1.3 L (2-4) % Baso % (Auto) 0.8 (0-2) % Neut # (Auto) 5400 (8426-8238) /uL Lymph # (Auto) 3700 (5044-0150) /uL [place] # (Auto) 600 (0-900) /uL Eos # (Auto) 100 (0-450) /uL Baso # (Auto) 100 (0-100) /uL PT (10.1-12.7) SECONDS INR (0.9-1.3) APTT (26.4-36.2) SECONDS Sodium (137-145) mmol/L Potassium (3.4-5.1) mmol/L Chloride (98-107) mmol/L Carbon Dioxide (22-32) mmol/L BUN (7-17) mg/dL Creatinine (0.52-1.04) mg/dL Estimated GFR (>60) mL/min BUN/Creatinine Ratio (6-22) Glucose (70-100) mg/dL Calcium (8.4-10.2) mg/dL Total Bilirubin (0.2-1.3) mg/dL AST (14-36) IU/L ALT (<35) IU/L Alkaline Phosphatase (38-126) U/L Total Protein (6.3-8.2) g/dL Albumin (3.5-5.0) g/dL Globulin (1.7-4.1) g/dL Albumin/Globulin Ratio (1.0-2.8) Lipase (23-300) U/L HCG, Quant mIU/mL Urine RBC 1-5/hpf (0-5/HPF) Urine WBC 1-5/hpf (0-5/HPF) Ur Squamous Epith Cells 1-5 /hpf (0-5/HPF) Urine Bacteria Occasional (0-1) D (None) Ur Culture Indicated? Cult not indicated Urine Test Positive H (Negative) Blood Type 01/10/21 01/10/21 01/10/21 Range/Units 22:31 22:31 22:31 WBC (4.5-11.0) X10^3/uL RBC (4.0-5.2) X10^6/uL Hgb (12.0-16.0) g/dL Hct (36-46) % MCV (80-100) fL MCH (26-34) PG MCHC (30-36) % RDW (11.6-14.8) % Plt Count (150-400) X10^3/uL Neut % (Auto) (50-75) % Lymph % (Auto) (25-40) % [place] % (Auto) (3-14) % Eos % (Auto) (2-4) % Baso % (Auto) (0-2) % Neut # (Auto) (4469-7193) /uL Lymph # (Auto) (9809-9704) /uL [place] # (Auto) (0-900) /uL Eos # (Auto) (0-450) /uL Baso # (Auto) (0-100) /uL PT 12.5 (10.1-12.7) SECONDS INR 1.1 (0.9-1.3) APTT 32 (26.4-36.2) SECONDS Sodium 136 L (137-145) mmol/L Potassium 4.3 (3.4-5.1) mmol/L Chloride 104 (98-107) mmol/L Carbon Dioxide 24 (22-32) mmol/L BUN 19 H (7-17) mg/dL Creatinine 0.60 (0.52-1.04) mg/dL Estimated GFR > 60.0 (>60) mL/min BUN/Creatinine Ratio 31.7 H (6-22) Glucose 93 (70-100) mg/dL Calcium 9.5 (8.4-10.2) mg/dL Total Bilirubin 0.6 (0.2-1.3) mg/dL AST 22 (14-36) IU/L ALT 19 (<35) IU/L Alkaline Phosphatase 64 (38-126) U/L Total Protein 6.8 (6.3-8.2) g/dL Albumin 4.2 (3.5-5.0) g/dL Globulin 2.6 (1.7-4.1) g/dL Albumin/Globulin Ratio 1.6 (1.0-2.8) Lipase 130 (23-300) U/L HCG, Quant 23340 mIU/mL Urine RBC (0-5/HPF) Urine WBC (0-5/HPF) Ur Squamous Epith Cells (0-5/HPF) Urine Bacteria (None) Ur Culture Indicated? Urine Test (Negative) Blood Type A Positive Point of care testing: Urine Dip Bedside Urine Glucose Negative Bedside Urine Bilirubin - Negative Bedside Urine Ketone - Negative Urine Specific [place] 1.030 Bedside Urine Occult Blood +/- Bedside Urine pH 6.0 Bedside Urine Protein - Negative Bedside Urine Urobilinogen - Negative Bedside Urine Nitrite - Negative Bedside Urine Leukocytes - Negative Esterase Imaging Data US - SUPERINTENDENT MARINE: Radiologist's Impression: Impression single intrauterine gestational sac. Complex area left ovary. This could represent corpus luteum. Ectopic is difficult to exclude. Recommend close follow-up. Complex left ovary measuring 2.4 x 2.0 x 2.2 cm. MDM Narrative Medical decision making narrative: Appropriate for discharge. Pain relief with Tylenol, conservative management. Low likelihood to be ectopic. Did discuss with nurse practitioner DARRYL Shukla on-call as well as spoke with patient and family and agree with discharge home. Not toxic. Laboratory studies reassuring at this time. Discharge Plan Departure Patient Disposition: Home Clinical Impression: Miscarriage, threatened, early Instructions: DI for Threatened Activity Restrictions/Additional Instructions: [facility] [place] to arrange appointment in the office this week. Their office phone number is [phone], call office today to confirm office time. Prescription for vitamins has been prescribed for you. Return if worse or if any questions or concerns. No sexual activity. Prescriptions: New prenat.vits,stephanie,[id number] Tablet 1 tab PO DAILY Qty: 30 RF: 0 No Action prednisone 50 mg tablet 50 mg PO DAILY Qty: 4 RF: 0 Referrals: Tierra Gonzalez MD [Physician] - Sana Agudelo ARNP [Primary Care Provider] -
[2021-01-10 23:06] LABS: PTT Partial Thromboplastin Tim 32 SECONDS (26.4-36.2)
[2021-01-10] MEDS: ACETAMINOPHEN 325 MG TABLET 650 MG PO (23:10)
[2021-01-10 23:11] LABS: HCG Quantitative /Beta subunit 11262 mIU/mL
[2021-01-10 23:12] LABS: Add Manual Diff / Slide Review NO; Basophils Absolute Auto 100 /uL (0-100); Basophils Percent Auto 0.8 % (0-2); Eosinophils Absolute Auto 100 /uL (0-450); Eosinophils Percent Auto 1.3 % (2-4); Hematocrit 36.8 % (36-46); Lymphocytes Absolute Auto 3700 /uL (1100-4500); Lymphocytes Percent Auto 37.3 % (25-40); Mean Corpuscular HGB Conc 35.3 % (30-36); Mean Corpuscular Volume 90.7 fL (80-100); Monocytes Absolute Auto 600 /uL (0-900); Neutrophils Absolute Auto 5400 /uL (1500-7000); Neutrophils Percent Auto 54.6 % (50-75); Platelet Count 300 X10^3/uL (150-400); Red Blood Cell Count 4.06 X10^6/uL (4.0-5.2); White Blood Cell Count 9.9 X10^3/uL (4.5-11.0)
--- NOTE | 2021-01-10 23:24 | DI.US.S_ITS ---
PROCEDURE: US OB <= 14 WEEKS FETUS INDICATIONS: PAIN OUTSIDE/PRIOR DATING DATA: Last menstrual period (LMP): Not known LMP-based estimated date of delivery (JAY): Not applicable First dating scan (date and location): January 10, 2021 Estimated date of delivery (JAY) from first dating scan: September 07, 2021 TECHNIQUE: Real-time scanning was performed of the fetus and maternal pelvic organs, with image documentation. Endovaginal scanning was also performed to better visualize the fetus and maternal ovaries. COMPARISON: None. FINDINGS: Embryo: Anechoic sac noted in the uterus which may represent early intrauterine . Mean gestational sac diameter 1.0 centimeters corresponding to ultrasound estimated gestational age of 5 weeks 5 days. No pole or yolk sac identified. Measurement variability in dating: +/- 4 weeks by LMP, +/- 7 days by mean sac diameter (use before 6 weeks gestation if crown-rump length not able to be measured), +/- 5 days by crown-rump length (up to 8 weeks 6 days gestation), +/- 7 days by crown-rump length (up to 13 weeks 6 days gestation). Maternal organs: 2.4 x 2.0 x 2.0 centimeter thick-walled cyst noted in the left ovary. Right ovary is sonographically normal. Posterior 4.3 x 2.7 centimeter uterine fibroid noted. IMPRESSION: 1. Anechoic sac in the uterus which could early , pseudogestation or nonviable . Recommend short-term follow-up ultrasound and correlation with laboratory data. 2. Thick walled cyst in the left ovary which could represent corpus luteal cyst , however ectopic is not excluded. Recommend close clinical observation, correlation with serial beta HCG and short-term follow-up ultrasound. Dictated by: Brittany Vásquez MD, PhD on 01/11/2021 at 6:57 Approved by: Brittany Vásquez MD, PhD on 01/11/2021 at 7:02
[2021-01-11 01:42] VITALS: BP 104/61; PULSE 56; RESP 15; O2SAT 98
[2021-01-13 00:07] LABS: Chlamydia trachomatis NAA Negative (Negative); Neisseria gonorrhoeae NAA Negative (Negative)
== END 2021-01-11 01:43 | disposition home or self-care (01) ==
PROVIDERS: Emergency Provider Emergency Medicine; PCP Nurse Practitioner Family
DX: O20.0 Threatened abortion (principal); R11.2 Nausea with vomiting, unspecified; R10.2 Pelvic and perineal pain; Z3A.13 13 weeks gestation of pregnancy
CPT/HCPCS: 36415; 76801; 76817; 80053; 81003; 81015; 81025; 83690; 84702; 85025; 85610; 85730; 86900; 86901; 87210; 87491; 87591; 99283; 99284

== ENCOUNTER → 2021-01-12 09:25 | Outpatient (CLI) | payer OTHER, SELFPAY ==
[2021-01-12 10:20] LABS: HCG Quantitative /Beta subunit 13542 mIU/mL
== END ==
PROVIDERS: PCP Nurse Practitioner Family; Referring Provider Specialist; Visit Provider Specialist
DX: O20.0 Threatened abortion (principal)
CPT/HCPCS: 36415; 84702

== ENCOUNTER → 2021-02-09 14:27 | Outpatient (CLI) | payer OTHER, SELFPAY ==
[2021-02-09 15:40] LABS: Add Manual Diff / Slide Review NO; Basophils Absolute Auto 100 /uL (0-100); Basophils Percent Auto 0.7 % (0-2); Eosinophils Absolute Auto 100 /uL (0-450); Eosinophils Percent Auto 0.9 % (2-4); Hematocrit 35.3 % (36-46); Hemoglobin 12.1 g/dL (12.0-16.0); Lymphocytes Absolute Auto 2100 /uL (1100-4500); Lymphocytes Percent Auto 21.8 % (25-40); Mean Corpuscular HGB Conc 34.3 % (30-36); Mean Corpuscular Hemoglobin 31.6 PG (26-34); Mean Corpuscular Volume 92.2 fL (80-100); Monocytes Absolute Auto 400 /uL (0-900); Monocytes Percent Auto 3.7 % (3-14); Neutrophils Absolute Auto 7000 /uL (1500-7000); Neutrophils Percent Auto 72.9 % (50-75); Platelet Count 288 X10^3/uL (150-400); Red Blood Cell Count 3.83 X10^6/uL (4.0-5.2); Red Cell Distribution Width 13.4 % (11.6-14.8); White Blood Cell Count 9.6 X10^3/uL (4.5-11.0)
[2021-02-09 15:45] LABS: Hemoglobin A1C% w Est Avg Glu 4.5 % (4.0-6.0)
[2021-02-09 15:58] LABS: Glucose 123 mg/dL (70-100)
[2021-02-09 16:48] LABS: HIV 1 & 2 Ab/Ag 4th Gen Combo NEGATIVE (NEGATIVE); Hep C Virus Ab w/Reflex Quant NEGATIVE s/c (NEGATIVE); Hepatitis B Surface Antigen NEGATIVE s/c (NEGATIVE); Rubella Antibody IgG 2.7 IU/mL (>15)
[2021-02-10 10:19] LABS: RPR Screen Non Reactive (Non Reactive); Varicella IgG Antibody 582 index (Immune >165)
== END ==
PROVIDERS: PCP Nurse Practitioner Family; Referring Provider Specialist; Visit Provider Specialist
DX: Z34.81 Encounter for supervision of other normal pregnancy, first trimester (principal)
CPT/HCPCS: 36415; 80055; 82947; 83036; 86787; 86803; 86850; 86900; 86901; 87389

== ENCOUNTER 2021-02-21 23:06 | Emergency (ER) | payer OTHER, SELFPAY ==
[2021-02-21 23:15] VITALS: BP 110/66; PULSE 75; RESP 17; TEMP 36.4; O2SAT 100; BMI 39.1
[2021-02-22 00:02] LABS: COVID19 -Nasal RAPID Negative (Negative)
[2021-02-22 00:10] VITALS: PULSE 71; RESP 18; O2SAT 97
[2021-02-22] MEDS: ALBUTEROL 2.5 MG/3 ML NEB (ADULT) INH (00:10)
--- NOTE | 2021-02-22 00:20 | ED_ITS ---
HPI - URI/Sore Throat General Chief Complaint: Upper Respiratory Symptoms Stated Complaint: cough, congestion, runny nose body aches Time Seen by Provider: 02/21/21 23:39 Source: patient Mode of arrival: Ambulatory Limitations: no limitations History of Present Illness HPI Narrative: Patient is a 20-year-old female who is currently 11 weeks presenting with cough that she coughs so hard she vomits. She is having some back and abdominal pain. No vaginal bleeding. She goes into coughing spells she admits to chills and sweats unclear she has had a temperature. She sometimes coughs up clear sputum. She denies any significant shortness of breath. She did get her COVID vaccine yesterday. MD Complaint: cough and sore throat Associated symptoms: fever, chills, sore throat and cough Related Data Home Medications Medication Instructions Recorded Confirmed fluoxetine 20 mg capsule 20 mg PO DAILY 02/06/21 02/06/21 lamotrigine 25 mg tablet 50 mg PO DAILY tab 02/06/21 02/06/21 prazosin 2 mg capsule 2 mg PO BEDTIME 02/06/21 02/06/21 Previous Rx's Medication Instructions Recorded prenat.vits,stephanie,[id number] 1 tab PO DAILY #90 tab 01/12/21 methylphenidate HCl 36 mg 36 mg PO DAILY #60 tab 02/20/21 tablet,extended release 24 hr Allergies Allergy/AdvReac Type Severity Reaction Status Date / Time No Known Drug Allergies Allergy Verified 02/06/21 14:14 Review of Systems Review of Systems Narrative: GENERAL: Denies chills, fatigue, malaise, fever, sweats, travel HEENT: Denies sinus pain, ear pain, sore throat, difficulty swallowing, neck pain RESPIRATORY: See HPI CARDIOVASCULAR: Denies chest pain, palpitations, orthopnea, edema GASTROINTESTINAL: Vomiting after she coughed and mild abdominal upper being usually associated with coughing : Denies dysuria, frequency, incontinence, hematuria, urinary retention, flank pain. MUSCULOSKELETAL: Mild back pain. Denies weakness, joint pain, or bony pain SKIN: No rash, no erythema, no pruritus NEUROLOGIC: Denies weakness, dizziness, headache, numbness, change in speech, confusion PSYCHIATRIC: No concerning psychosocial issues. 12 point review of systems is negative except for those stated above and HPI Patient History Medical History (~2017) Acute bronchitis ADHD Chlamydia Finger fracture, left History of being hospitalized (~2017) Hx of migraines Left ovarian cyst (~01/10/21) Pneumonia PTSD (post-traumatic stress disorder) Right wrist sprain Teeth crowding Uterine fibroid (~01/10/21) Wrist fracture, left Surgical History History of tonsillectomy (~2014) Family History Father Diabetes mellitus Hyperlipidemia Hypertension Addiction Family estrangement Mother Hypertension CVA (cerebral vascular accident) Addiction Seizures Migraine Grandfather No problems noted. Grandmother Hypertension Grandfather Family estrangement Grandmother Family estrangement Family/Other Addiction Abuse, drug or alcohol Family/Other No problems noted. Family/Other Cancer Breast cancer Family/Other Dementia Alzheimers disease Social History marital status: household members: spouse lives independently: Yes pets and animals: Yes (X 2 dogs, X 3 guinea pigs and X 2 ducks) education level: college (In [employer] (through her company)) occupational status: employed (Caregiver : lifts patient's) current occupational exposures/hazards: Yes special anoop needs: No Smoking Status: Former smoker Tobacco: How many years used: 10 second hand exposure: No alcohol intake: former (pre- : occasional ) substance use type: does not use and marijuana (H/O not with ) Smoking Status: Former smoker tobacco type: cigarettes alcohol intake frequency: holidays/special occasions only Substance Use Type: does not use Exam Initial Vital Signs Initial Vital Signs: Vital Signs Temperature 97.5 F L 02/21/21 23:15 Pulse Rate 75 02/21/21 23:15 Respiratory Rate 17 02/21/21 23:15 Blood Pressure 110/66 02/21/21 23:15 Pulse Oximetry 100 02/21/21 23:15 GENERAL: Well-appearing, well-nourished and in no acute distress. HEENT: Head atraumatic,EOMI, pupils reactive, face symmetric, pharynx no tonsils present mildly erythematous CARDIOVASCULAR: Regular rate and rhythm without murmurs, rubs or gallops. RESPIRATORY: Breath sounds equal bilaterally, no wheezes rales or rhonchi. Bronchospastic cough no respiratory distress. She coughs every time she takes a deep breath ABDOMEN: Soft, nontender. Normoactive bowel sounds all 4 quadrants. No guarding or rebound. EXTREMITIES: Normal range of motion, no clubbing or edema. Neurovascularly intact NEUROLOGICAL: Alert and oriented x4.Normal gait and speech. SKIN: Warm, dry, no laceration, no petechiae, no rashes or lesions. Course Orders Ordered: ED Orders 02/21/21 23:18 COVID19 -Nasal swab/Pre-Proc Stat 02/22/21 01:31 US OB <= 14 weeks fetus Stat Discontinued Medications Acetaminophen (Acetaminophen 325 Mg Tablet) 975 mg PO NOW ONE Stop: 02/22/21 00:14 Last Admin: 02/22/21 00:39 Dose: 975 mg Documented by: DARIEL Albuterol (Albuterol 2.5 Mg/3 Ml Neb (Adult)) 2.5 mg INH NOW ONE Stop: 02/22/21 00:10 Last Admin: 02/22/21 00:10 Dose: 2.5 mg Documented by: SYLVIA Albuterol (Albuterol Hfa Prepack) [facility] Stop: 02/22/21 02:15 Last Admin: 02/22/21 02:30 Dose: 1 box Documented by: SYLVIA Vital Signs Vital signs: Vital Signs - 8 hr 02/21/21 23:15 02/22/21 00:10 02/22/21 02:30 Temperature 97.5 F L Pulse Rate 75 71 74 Respiratory Rate 17 18 18 Blood Pressure 110/66 Pulse Oximetry 100 97 98 02/22/21 02:36 Temperature Pulse Rate 87 Respiratory Rate 24 Blood Pressure 100/58 L Pulse Oximetry 98 MDM - URI/Sore Throat Lab Data Attestation: I reviewed the patient's lab results. Labs: Lab Results 02/21/21 Range/Units 23:18 SARS-CoV-2 (PCR) Negative (Negative) Urine Dip Bedside Urine Glucose Negative Bedside Urine Bilirubin - Negative Bedside Urine Ketone - Negative Urine Specific [place] 1.015 Bedside Urine Occult Blood - Negative Bedside Urine pH 7 Bedside Urine Protein - Negative Bedside Urine Urobilinogen - Negative Bedside Urine Nitrite - Negative Bedside Urine Leukocytes - Negative Esterase Imaging Data US - OB: Radiologist's Impression: Urine ultrasound age of 11 weeks and 6 days it is which corresponds to estimated date of delivery 08/10/2020 at anterior partial placenta previa follow-up ultrasound after appropriate interval recommended MDM Narrative Medical decision making narrative: Patient's COVID is negative. She she is given albuterol his to help with a bronchospastic like cough which it does seem to improve her cough however she still has 1 but significantly less frequent. Patient is afebrile she is in no respiratory distress. Lungs are clear. At this time no chest x-ray is indicated. He is still complaining of some mild abdominal pain. He urine does not show any infection and ultrasound is reassuring. She likely has viral like syndrome causing inflammation in her airways. She is taught how to use albuterol inhaler with spacer. Discharge Plan Departure Patient Disposition: Home Clinical Impression: Upper respiratory infection Qualifiers: URI type: unspecified viral URI Qualified Code(s): J06.9 - Acute upper respiratory infection, unspecified Instructions: DI for Viral Upper Respiratory Infection -- Adult Activity Restrictions/Additional Instructions: *You have been diagnosed with upper respiratory infection *What to do: At this time no antibiotics are indicated, your COVID is negative. You are having like a broncho spasm which albuterol inhaler can help with. Continue to increase fluid intake. Today baby looks healthy. *Continue to take medications as directed Albuterol inhaler 1-2 puffs every 4 hours if needed for coughing or shortness of breath *Follow up with your primary care provider in 2-3 days *Return to ER if you should have a fever, increasing shortness of breath, abdominal pain, vaginal bleeding or any new, worsening or concerning symptoms Prescriptions: No Action prenat.vits,stephanie,[id number] Tablet 1 tab PO DAILY Qty: 90 RF: 3 methylphenidate HCl [Concerta] 36 mg tablet extended release 24hr 36 mg PO DAILY Qty: 60 RF: 0 lamotrigine 25 mg tablet 50 mg PO DAILY RF: 0 fluoxetine 20 mg capsule 20 mg PO DAILY RF: 0 prazosin 2 mg capsule 2 mg PO BEDTIME RF: 0 Referrals: Tierra Gonzalez MD [Physician] - Annamarie Martinez ARNP [Primary Care Provider] -
[2021-02-22] MEDS: ACETAMINOPHEN 325 MG TABLET 975 MG PO (00:39)
--- NOTE | 2021-02-22 01:31 | DI.US.S_ITS ---
PROCEDURE: US OB <= 14 WEEKS FETUS INDICATIONS: PAIN OUTSIDE/PRIOR DATING DATA: Last menstrual period (LMP): Not available LMP-based estimated date of delivery (JAY): None available First dating scan (date and location): 01/12/21 Estimated date of delivery (JAY) from first dating scan: 09/09/21 TECHNIQUE: Real-time scanning was performed of the fetus and maternal pelvic organs, with image documentation. Endovaginal scanning was also performed to better visualize the fetus and maternal ovaries. COMPARISON: [facility], , OB <= 14 WEEKS FETUS, 02/09/2021, 13:56. [facility], , OB <= 14 WEEKS FETUS, 01/10/2021, 23:53. FINDINGS: Embryo: [place]-rump length 5.2 cm correlates with a gestational age of 11 weeks 6 days. cardiac activity is seen at 152 beats per minute. Measurement variability in dating: +/- 4 weeks by LMP, +/- 7 days by mean sac diameter (use before 6 weeks gestation if crown-rump length not able to be measured), +/- 5 days by crown-rump length (up to 8 weeks 6 days gestation), +/- 7 days by crown-rump length (up to 13 weeks 6 days gestation). Maternal organs: Ovaries normal considering gestational status. . IMPRESSION: Single living intrauterine gestation, with current estimated gestational age of 11 weeks 6 days, +/-5 days. The delivery date is projected to be centered on 09/09/21. Follow-up anatomic survey at 20 weeks gestation is recommended. Dictated by: Mulugeta Sullivan M.D. on 02/22/2021 at 16:09 Approved by: Mulugeta Sullivan M.D. on 02/22/2021 at 16:12
[2021-02-22 02:30] VITALS: PULSE 74; RESP 18; O2SAT 98
[2021-02-22] MEDS: ALBUTEROL HFA PREPACK 1 BOX MISC (02:30)
[2021-02-22 02:36] VITALS: BP 100/58; PULSE 87; RESP 24; O2SAT 98
== END 2021-02-22 02:38 | disposition home or self-care (01) ==
PROVIDERS: Emergency Provider Emergency Medicine; PCP Nurse Practitioner Family
DX: O26.891 Other specified pregnancy related conditions, first trimester (principal); J06.9 Acute upper respiratory infection, unspecified; R05 Cough; M54.9 Dorsalgia, unspecified; R10.9 Unspecified abdominal pain; Z20.822 Contact with and (suspected) exposure to COVID-19
CPT/HCPCS: 76801; 81003; 87635; 94640; 99283; C9803; J7613

== ENCOUNTER 2021-03-15 23:18 | Emergency (ER) | payer OTHER, SELFPAY ==
[2021-03-15 23:30] VITALS: BP 110/62; PULSE 89; RESP 17; TEMP 36.8; O2SAT 99; BMI 38.2
--- NOTE | 2021-03-16 00:19 | ED_ITS ---
HPI - General Adult General Chief complaint: OB/Uterine Contractions Stated complaint: pain in stomach/back spotting 14 wks Time Seen by Provider: 03/16/21 00:14 Source: patient Mode of arrival: Ambulatory Limitations: no limitations History of Present Illness HPI narrative: Patient is a 20-year-old female. at approximately 14 weeks EGA. Has been seen by Ob several times and this thus far. She is here for evaluation of a couple days of right-sided abdominal discomfort. She has had abdominal pain in this in the past but she states the pain that she is experiencing today is new pain. No urinary symptoms. She also had some vaginal spotting earlier today. No nausea vomiting. No skin rashes. She states the pain does get worse when she takes a deep breath. Related Data Home Medications Medication Instructions Recorded Confirmed fluoxetine 20 mg capsule 20 mg PO DAILY 02/06/21 03/09/21 lamotrigine 25 mg tablet 50 mg PO DAILY tab 02/06/21 03/09/21 prazosin 2 mg capsule 2 mg PO BEDTIME 02/06/21 03/09/21 Previous Rx's Medication Instructions Recorded prenat.vits,stephanie,[id number] 1 tab PO DAILY #90 tab 01/12/21 methylphenidate HCl 36 mg 36 mg PO DAILY #60 tab 02/20/21 tablet,extended release 24 hr (Concerta) albuterol sulfate 90 mcg/actuation 1 - 2 puff INHALATION Q4H PRN #8.5 02/27/21 aerosol inhaler g Allergies Allergy/AdvReac Type Severity Reaction Status Date / Time No Known Drug Allergies Allergy Verified 02/06/21 14:14 Review of Systems Constitutional Constitutional: Denies fever(s) Cardiovascular Cardiovascular: Denies chest pain and Reports dyspnea Respiratory Respiratory: Reports dyspnea Gastrointestinal Gastrointestinal: Reports abdominal pain, Denies nausea and Denies vomiting Genitourinary Genitourinary: Reports other (Vaginal spotting) Musculoskeletal Musculoskeletal: Reports system reviewed and no additional complaints, except as documented Integumentary/Breasts Skin/Breast: Reports system reviewed and no additional complaints, except as documented Neurologic Neurologic: Reports system reviewed and no additional complaints, except as documented Hematologic/Lymphatic On Anticoagulants: No Allergic/Immunologic Allergic/Immunologic: Reports system reviewed and no additional complaints, except as documented Patient History Medical History (~2017) Acute bronchitis ADHD Chlamydia Finger fracture, left History of being hospitalized (~2017) Hx of migraines Left ovarian cyst (~01/10/21) Pneumonia PTSD (post-traumatic stress disorder) Right wrist sprain Teeth crowding Uterine fibroid (~01/10/21) Wrist fracture, left Surgical History History of tonsillectomy (~2014) Family History Father Diabetes mellitus Hyperlipidemia Hypertension Addiction Family estrangement Mother Hypertension CVA (cerebral vascular accident) Addiction Seizures Migraine Grandfather No problems noted. Grandmother Hypertension Grandfather Family estrangement Grandmother Family estrangement Family/Other Addiction Abuse, drug or alcohol Family/Other No problems noted. Family/Other Cancer Breast cancer Family/Other Dementia Alzheimers disease Social History marital status: household members: spouse lives independently: Yes pets and animals: Yes (X 2 dogs, X 3 guinea pigs and X 2 ducks) education level: college (In School [employer] (through her company)) occupational status: employed (Caregiver : lifts patient's) current occupational exposures/hazards: Yes special anoop needs: No Smoking Status: Former smoker Tobacco: How many years used: 10 second hand exposure: No alcohol intake: former (pre- : occasional ) substance use type: does not use and marijuana (H/O not with ) Smoking Status: Former smoker tobacco type: cigarettes alcohol intake frequency: holidays/special occasions only Substance Use Type: does not use Exam Initial Vital Signs Initial Vital Signs: Vital Signs Temperature 98.2 F 03/15/21 23:30 Pulse Rate 89 03/15/21 23:30 Respiratory Rate 17 03/15/21 23:30 Blood Pressure 110/62 03/15/21 23:30 Pulse Oximetry 99 03/15/21 23:30 Const General: cooperative, healthy appearing and comfortable HENMT Head: normal to inspection Resp Effort & Inspection: not labored and not tachypneic Auscultation: clear to auscultation bilaterally Cardio Rate: regular rate Rhythm: regular rhythm GI Inspection: non-distended Palpation: soft Other: Some discomfort right flank. Back/Spine/Pelvis Back: No CVA tenderness Skin General: no rashes or lesions noted Neuro General: patient alert and patient awake Extrem General: normal to inspection and capillary refill normal Psych Appearance: grossly normal Course Orders Ordered: ED Orders 03/16/21 00:20 US OB limited Stat 03/16/21 00:30 Complete Blood Count AUTO DIFF Stat Comprehensive Metabolic Panel Stat Lipase Stat Discontinued Medications Morphine Sulfate (Morphine 4 Mg/Ml Inj) 4 mg IV NOW ONE Stop: 03/16/21 00:20 Last Admin: 03/16/21 00:38 Dose: 4 mg Documented by: DARIEL Vital Signs Vital signs: Vital Signs - 8 hr 03/15/21 23:30 03/16/21 01:57 Temperature 98.2 F Pulse Rate 89 71 Respiratory Rate 17 Blood Pressure 110/62 105/65 Pulse Oximetry 99 99 Medical Decision Making Lab Data Lab results reviewed: Yes I reviewed the patient's lab results. Result diagrams: 03/16/21 00:30 03/16/21 00:30 Labs: Lab Results 03/16/21 03/16/21 03/16/21 Range/Units 00:30 00:30 00:30 WBC 11.3 H (4.5-11.0) X10^3/uL RBC 3.54 L (4.0-5.2) X10^6/uL Hgb 11.4 L (12.0-16.0) g/dL Hct 32.7 L (36-46) % MCV 92.3 (80-100) fL MCH 32.2 (26-34) PG MCHC 34.8 (30-36) % RDW 13.8 (11.6-14.8) % Plt Count 263 (150-400) X10^3/uL Neut % (Auto) 64.7 (50-75) % Lymph % (Auto) 27.3 (25-40) % [place] % (Auto) 4.9 (3-14) % Eos % (Auto) 1.4 L (2-4) % Baso % (Auto) 1.7 (0-2) % Neut # (Auto) 7300 H (9235-8351) /uL Lymph # (Auto) 3100 (7144-9848) /uL [place] # (Auto) 600 (0-900) /uL Eos # (Auto) 200 (0-450) /uL Baso # (Auto) 200 H (0-100) /uL Sodium 135 L (137-145) mmol/L Potassium 3.8 (3.4-5.1) mmol/L Chloride 107 (98-107) mmol/L Carbon Dioxide 21 L (22-32) mmol/L BUN 9 (7-17) mg/dL Creatinine 0.45 L (0.52-1.04) mg/dL Estimated GFR > 60.0 (>60) mL/min BUN/Creatinine Ratio 20.0 (6-22) Glucose 91 (70-100) mg/dL Calcium 8.9 (8.4-10.2) mg/dL Total Bilirubin 0.4 (0.2-1.3) mg/dL AST 27 (14-36) IU/L ALT 25 (<35) IU/L Alkaline Phosphatase 48 (38-126) U/L Total Protein 6.4 (6.3-8.2) g/dL Albumin 3.8 (3.5-5.0) g/dL Globulin 2.6 (1.7-4.1) g/dL Albumin/Globulin Ratio 1.5 (1.0-2.8) Lipase 129 (23-300) U/L Point of Care Testing Test Results Positive Urine Dip Bedside Urine Glucose Negative Bedside Urine Bilirubin - Negative Bedside Urine Ketone - Negative Urine Specific [place] 1.030 Bedside Urine Occult Blood - Negative Bedside Urine pH 6.0 Bedside Urine Protein - Negative Bedside Urine Urobilinogen - Negative Bedside Urine Nitrite - Negative Bedside Urine Leukocytes - Negative Esterase Point of care testing: Point of Care Testing Test Results Positive Urine Dip Bedside Urine Glucose Negative Bedside Urine Bilirubin - Negative Bedside Urine Ketone - Negative Urine Specific [place] 1.030 Bedside Urine Occult Blood - Negative Bedside Urine pH 6.0 Bedside Urine Protein - Negative Bedside Urine Urobilinogen - Negative Bedside Urine Nitrite - Negative Bedside Urine Leukocytes - Negative Esterase Imaging Data US - OB: Radiologist's Impression: heart rate 141 Posterior fibroid No subchorionic hemorrhage is seen MDM Narrative Medical decision making narrative: Urinalysis does not show any signs of an infection. Her labs are unremarkable. Ultrasound shows intrauterine . She feels better after the above therapies. I feel that we should hold on any radiologic studies for now. She expressed agreement with this. She was given return precautions and follow-up instructions. She expressed understanding and agreement. Discharge Plan Departure Patient Disposition: Home Clinical Impression: Abdominal pain affecting Instructions: DI for Abdominal Pain -- Early Activity Restrictions/Additional Instructions: Continue all of your medications as directed by your OB provider. Keep all of your scheduled OB appointments. Return to the emergency department for any new or worsening symptoms Prescriptions: No Action prenat.vits,stephanie,[id number] Tablet 1 tab PO DAILY Qty: 90 RF: 3 methylphenidate HCl [Concerta] 36 mg tablet extended release 24hr 36 mg PO DAILY Qty: 60 RF: 0 albuterol sulfate 90 mcg/actuation HFA aerosol inhaler 1 - 2 puff inhalation Q4H PRN (Reason: shortness of breath or wheezing) Qty: 8.5 RF: 2 lamotrigine 25 mg tablet 50 mg PO DAILY RF: 0 fluoxetine 20 mg capsule 20 mg PO DAILY RF: 0 prazosin 2 mg capsule 2 mg PO BEDTIME RF: 0 Referrals: Annamarie Martinez ARNP [Primary Care Provider] -
--- NOTE | 2021-03-16 00:20 | DI.US.S_ITS ---
PROCEDURE: US OB LIMITED INDICATIONS: PAIN, BLEEDING OUTSIDE/PRIOR DATING DATA: Last menstrual period (LMP): Unknown. LMP-based estimated date of delivery (JAY): Unknown. First dating scan (date and location): 01/22/2021. Estimated date of delivery (JAY) from first dating scan: 09/09/2021. TECHNIQUE: Real-time scanning was performed of the fetus, with image documentation. Endovaginal scanning: Not performed COMPARISON: [facility], OB <= 14 WEEKS FETUS, 01/10/2021, 23:53. [facility], US PELVIC COMPLETE, 01/12/2021, 12:26. [facility], OB <= 14 WEEKS FETUS, 02/22/2021, 1:57. FINDINGS: A single living intrauterine gestation is present. Presentation: Vertex. Placenta: Placental position is posterior, without previa. Amniotic fluid index: Not calculated. Subjectively normal. heart rate: 144 beats per minute. Estimated gestational age from initial scan: 14 weeks 5 days. Posterior intramural/subserosal fibroid measuring 4.7 x 3.8 x 3.4 cm. IMPRESSION: 1. Grady living intrauterine at 14 weeks 5 days based on prior ultrasound. 2. No placental abruption demonstrated. 3. Posterior intramural/subserosal fibroid measuring 4.7 cm is again seen. This report is concordant with the overnight preliminary interpretation. Dictated by: Joshua Springer M.D. on 03/16/2021 at 8:16 Approved by: Joshua Springer M.D. on 03/16/2021 at 8:22
[2021-03-16] MEDS: MORPHINE 4 MG/ML INJ IV (00:38)
[2021-03-16 00:43] LABS: Add Manual Diff / Slide Review NO; Basophils Absolute Auto 200 /uL (0-100); Basophils Percent Auto 1.7 % (0-2); Eosinophils Absolute Auto 200 /uL (0-450); Eosinophils Percent Auto 1.4 % (2-4); Hematocrit 32.7 % (36-46); Hemoglobin 11.4 g/dL (12.0-16.0); Lymphocytes Absolute Auto 3100 /uL (1100-4500); Lymphocytes Percent Auto 27.3 % (25-40); Mean Corpuscular HGB Conc 34.8 % (30-36); Mean Corpuscular Hemoglobin 32.2 PG (26-34); Mean Corpuscular Volume 92.3 fL (80-100); Monocytes Absolute Auto 600 /uL (0-900); Monocytes Percent Auto 4.9 % (3-14); Neutrophils Absolute Auto 7300 /uL (1500-7000); Neutrophils Percent Auto 64.7 % (50-75); Platelet Count 263 X10^3/uL (150-400); Red Blood Cell Count 3.54 X10^6/uL (4.0-5.2); Red Cell Distribution Width 13.8 % (11.6-14.8); White Blood Cell Count 11.3 X10^3/uL (4.5-11.0)
[2021-03-16 00:51] LABS: Lipase 129 U/L (23-300)
[2021-03-16 00:53] LABS: Alanine Aminotransferase 25 IU/L (<35); Albumin 3.8 g/dL (3.5-5.0); Albumin Globulin Ratio 1.5 (1.0-2.8); Alkaline Phosphatase 48 U/L (38-126); Aspartate Aminotransferase 27 IU/L (14-36); Bilirubin Total 0.4 mg/dL (0.2-1.3); Blood Urea Nitrogen 9 mg/dL (7-17); Calcium 8.9 mg/dL (8.4-10.2); Carbon Dioxide 21 mmol/L (22-32); Chloride 107 mmol/L (98-107); Estimated Glomerular Filt Rate > 60.0 mL/min (>60); Globulin 2.6 g/dL (1.7-4.1); Glucose 91 mg/dL (70-100); HEMOLYSIS < 15 (0-50); Potassium 3.8 mmol/L (3.4-5.1); Sodium 135 mmol/L (137-145); Total Protein 6.4 g/dL (6.3-8.2)
[2021-03-16 01:57] VITALS: BP 105/65; PULSE 71; O2SAT 99
== END 2021-03-16 02:03 | disposition home or self-care (01) ==
PROVIDERS: Emergency Provider Emergency Medicine; PCP Nurse Practitioner Family
DX: O26.91 Pregnancy related conditions, unspecified, first trimester (principal); R10.9 Unspecified abdominal pain; R06.00 Dyspnea, unspecified; Z3A.14 14 weeks gestation of pregnancy
CPT/HCPCS: 36415; 76815; 80053; 81003; 81025; 83690; 85025; 96374; 99284; J2270

== ENCOUNTER → 2021-04-05 14:52 | Outpatient (CLI) | payer OTHER, SELFPAY ==
[2021-04-05 20:21] LABS: Appearance Urine UA SL CLOUDY; Bilirubin Urine UA NEGATIVE (NEGATIVE); Color Urine UA YELLOW; Glucose Urine UA NEGATIVE (Negative); Ketones Urine UA NEGATIVE (NEGATIVE); Leukocyte Esterase Urine UA NEGATIVE (NEGATIVE); Nitrite Urine UA NEGATIVE (Negative); Occult Blood Urine UA TRACE-LYSED (Negative); Protein Urine UA TRACE (Negative); Urobilinogen Urine UA 0.2 E.U./dL (0.2)
== END ==
PROVIDERS: PCP Nurse Practitioner Family; Visit Provider Specialist
DX: Z34.81 Encounter for supervision of other normal pregnancy, first trimester (principal)
CPT/HCPCS: 81003; 87086

== ENCOUNTER → 2021-04-24 12:39 | Outpatient (CLI) | payer OTHER, SELFPAY ==
--- NOTE | 2021-04-24 12:41 | DI.US.S_ITS ---
PROCEDURE: US OB >= 14 WEEKS FETUS INDICATIONS: ANATOMY OUTSIDE/PRIOR DATING DATA: . First dating scan (date and location): 01/12/2021 . Estimated date of delivery (JAY) from first dating scan: 09/09/2021 TECHNIQUE: Real-time scanning was performed of the fetus, with image documentation and biometric measurements. Endovaginal scanning: No COMPARISON: [facility], , OB >= 14 WEEKS FETUS, 04/05/2021, 15:07. FINDINGS: General: A single living intrauterine gestation is present. Presentation: Vertex. Placenta: Placental position is fundal , without previa. Amniotic fluid index: 12.7 cm, normal range is 5-24 cm. heart rate: 141 beats per minute. Maternal cervical canal: 4.2 cm long. Normal lower limit is 2.5 cm. biometrics: Biparietal diameter: 21 weeks 5 days Head circumference: 21 weeks Abdominal circumference: 21 weeks 1 day Femur length: 20 weeks 6 days Estimated gestational age from initial scan: 20 weeks 2 days Composite gestational age from present scan: 21 weeks 1 day Estimated weight and percentile: 396 g, 85th percentile. Measurement variability for biometric dating: +/- 7 days from 14 weeks to 15 weeks 6 days gestation, +/- 10 days from 16 weeks to 21 weeks 6 days gestation, +/- 2 weeks from 22 weeks to 27 weeks 6 days gestation, +/- 3 weeks for 28 weeks gestation or later. weight reference: 4500 g or EFW >90/95% is considered macrosomia or large for gestational age. EFW <10% is small for gestational age. EFW 5% or less is considered intra-uterine growth restriction. Anatomic survey: Neuro: Ventricles are non-dilated at less than 10 mm. Cisterna magna is normal at 3-11 mm. Cerebellum is normal in size and morphology. Nuchal skin fold: Normal at less than 6 mm between 14-21 weeks gestational age. Face: Nose and lips, facial profile are normal. Spine: No evidence for spina bifida. Heart: 4-chambered heart is present, with normal ventricular outflow tracts. Diaphragm: Diaphragm is intact. Stomach: Left-sided stomach is present. Kidneys: No hydronephrosis. Normal is less than 5 mm in 2nd trimester, less than 7 mm in 3rd trimester. Cord: 3-vessel cord has orthotopic insertion. Bladder: Normal in size. Extremities: All 4 extremities identified. IMPRESSION: 1. Single living IUP redemonstrated and interval growth is within normal limits. 2. Normal anatomic survey. Dictated by: Timothy ARGUELLO Interpreted: Ron Chauhan MD on 04/24/2021 at 14:06 Transcribed by: DALE on 04/24/2021 at 14:08 Approved by: Mulugeta Sullivan M.D. on 04/25/2021 at 13:35
== END ==
PROVIDERS: PCP Nurse Practitioner Family; Referring Provider Specialist; Visit Provider Specialist
DX: Z34.82 Encounter for supervision of other normal pregnancy, second trimester (principal); Z3A.21 21 weeks gestation of pregnancy
CPT/HCPCS: 76811